=== PATIENT | male | born 1960 | race African-American/Black ===

== ENCOUNTER 2016-10-29 14:09 | Emergency (ER) | payer BC, OTHER ==
[2016-10-29 14:17] VITALS: BP 147/71; PULSE 86; RESP 18; TEMP 97.8
--- NOTE | 2016-10-29 14:33 | ED ---
Chest Pain HPI - General Chief Complaint: Chest Pain Stated Complaint: Rib Injury Time Seen by Provider: 10/29/16 14:21 Source: patient, RN notes reviewed Mode of arrival: ambulatory Limitations: no limitations - History of Present Illness Initial Comments: This a pleasant 56-year-old male who presents emergency department complaining of right anterior lateral rib pain. Patient states that he fell at home last and has had pain in the area ever since. He also states he's got pain to a lesser sent in the left anterior ribs. Patient denies any neck or back pain. Patient denies abdominal pain. Patient denies any head or neck injury. Patient denies shortness breath but does state that he is getting pain with deep breathing. Patient states that any touching or movement the chest wall exacerbates the pain. Remaining still does alleviate the pain patient is also complaining of a nodule to the plantar aspect of his left foot which is inflamed by walking. Patient states that he is having pain to the area. Patient denies any injury. Patient states that there is a palpable nodule to the area. Patient denies any redness. No streaking. No fever or chills. Additionally the patient's complaining of right eye discharge. Patient denies any vision problems. Patient denies any pain. He states the eye feels irritated. Patient states that he did have evidence of crusting from the eye this morning. Patient denies any other upper respiratory symptoms. No runny nose. No sore throat. No difficulty swallowing. No ear pain. Patient denies any neck pain. No shortness of breath. No palpitations. No change in bowel movements or urination. No nausea or vomiting. No paresthesias. No skin rashes or lesions. Pain Radiation: LUE - Related Data Previous Rx's Medication Instructions Recorded Ranitidine HCl [Zantac] 150 mg PO BID PRN #30 tab 11/09/15 Acetaminophen-Codeine 300-30mg 1 each PO Q4H PRN #20 tablet 10/29/16 [Tylenol w/codeine #3] Naproxen [Naprosyn] 500 mg PO Q12HR #24 tab 10/29/16 Tobra-Dexamet 0.3-0.1% Eye Bernadette 1 drops RIGHT EYE Q4H #10 ml 10/29/16 [Tobradex Ophth Susp] Allergies Allergy/AdvReac Type Severity Reaction Status Date / Time latex AdvReac Rash/Hives Verified 11/09/15 14:06 Review of Systems ROS Statement: Those systems with pertinent positive or pertinent negative responses have been documented in the HPI. ROS Other: All systems not noted in ROS Statement are negative. Past Medical History Past Medical History: No Reported History History of Any Multi-Drug Resistant Organisms: None Reported Additional Past Surgical History / Comment(s): left knee, thumb Past Psychological History: No Psychological Hx Reported Smoking Status: Never smoker Past Alcohol Use History: Occasional Past Drug Use History: None Reported General Exam - General Exam Comments Initial Comments: Well-developed, well-nourished 56-year-old male in no distress Limitations: no limitations General appearance: alert, in no apparent distress Head exam: Present: atraumatic, normocephalic, normal inspection Eye exam: Present: PERRL, EOMI, conjunctival injection (Right, no purulent discharge). Absent: scleral icterus, nystagmus, periorbital swelling, periorbital tenderness Pupils: Present: normal accommodation ENT exam: Present: normal exam, normal oropharynx, mucous membranes moist, TM's normal bilaterally, normal external ear exam Neck exam: Present: normal inspection. Absent: tenderness, meningismus, lymphadenopathy Respiratory exam: Present: chest wall tenderness (Right anterior lateral rib tenderness. No crepitus or deformity.) Cardiovascular Exam: Present: regular rate, normal rhythm, normal heart sounds. Absent: systolic murmur, diastolic murmur, rubs, gallop, clicks GI/Abdominal exam: Present: soft, normal bowel sounds. Absent: distended, tenderness, guarding, rebound, rigid Extremities exam: Present: normal capillary refill, other (Patient has a palpable nodule to the plantar aspect of the left forefoot. There is no evidence of surrounding erythema. No evidence of infection. No evidence of abscess. This is a mobile, less than 1 cm diameter, subcutaneous nodule) Back exam: Present: normal inspection Neurological exam: Present: alert, oriented X3, CN II-XII intact Psychiatric exam: Present: normal affect, normal mood Skin exam: Present: warm, dry, intact, normal color. Absent: rash Course Vital Signs 10/29/16 14:12 Temperature 97.8 F Pulse Rate 86 Respiratory 18 Rate Blood Pressure 147/71 O2 Sat by Pulse 97 Oximetry Chest Pain MDM - MDM Plain film x-rays of the right ribs and AP chest reveal no acute pathology as read by me. There is no pneumothorax. No fracture. No effusion. No cardiomegaly. No infiltrate. Patient appears to have healing right rib contusions. There was no abdominal tenderness. Patient looks well. Patient is not hemodynamically unstable. Patient is afebrile. Patient also has what appears to be viral conjunctivitis to the right eye. Patient also has a noninflamed subcutaneous nodule to the plantar aspect of his left foot. This is noninfected. Patient will need to follow-up with his regular physician for reevaluation. Return parameters discussed Return to the ER at once if the symptoms worsen or problems or difficulties arise. Disposition Clinical Impression: Contusion of rib on right side, Single skin nodule, Conjunctivitis of right eye Disposition: HOME SELF-CARE Condition: Good Instructions: Conjunctivitis (ED), Rib Contusion (ED) Additional Instructions: Follow-up with your primary care physician regarding the nodule on the plantar aspect of the left foot. Return to the ER at once if the symptoms worsen or problems or difficulties arise. Prescriptions: Acetaminophen-Codeine 300-30mg [Tylenol w/codeine #3] 1 each PO Q4H PRN #20 tablet PRN Reason: Pain Naproxen [Naprosyn] 500 mg PO Q12HR #24 tab Tobra-Dexamet 0.3-0.1% Eye Bernadette [Tobradex Ophth Susp] 1 drops RIGHT EYE Q4H #10 ml Referrals: Eleazar Blackman MD [Primary Care Provider] - 1-2 days Time of Disposition: 15:03
--- NOTE | 2016-10-29 15:08 | XR ---
EXAMINATION TYPE: XR ribs RT w pa chest xray DATE OF EXAM: 10/29/2016 3:00 PM COMPARISON: NONE HISTORY: Pain TECHNIQUE: Single view of the chest 4 views of the ribs are submitted. FINDINGS: The lungs are clear. No Evidence for pneumothorax. No evidence for focal contusion. Medi astinal structures are midline. Evaluation of the ribs fails to demonstrate evidence for displaced r ib fracture or secondary sign of rib fracture. IMPRESSION: Negative study
== END 2016-10-29 15:16 | disposition home or self-care (01) ==
LOC: EC 14:09
DX: S20.211A Contusion of right front wall of thorax, initial encounter (principal); H10.9 Unspecified conjunctivitis; R22.9 Localized swelling, mass and lump, unspecified; Z91.040 Latex allergy status; W19.XXXA Unspecified fall, initial encounter
CPT/HCPCS: 99284

== ENCOUNTER 2017-02-04 06:39 | Emergency (ER) | payer OTHER ==
[2017-02-04 06:48] VITALS: RESP 18
[2017-02-04] MEDS ORDERED: KETOROLAC 60 MG/2 ML VIAL IM STA (08:09)
[2017-02-04] MEDS ORDERED: Acetaminophen-Codeine 300-30mg TAB PO STA (08:09)
--- NOTE | 2017-02-04 08:11 | ED ---
General Adult HPI - General Chief complaint: Back Pain/Injury Stated complaint: Back Pain Time Seen by Provider: 02/04/17 07:12 Source: patient, RN notes reviewed, old records reviewed Mode of arrival: ambulatory Limitations: no limitations - History of Present Illness Initial comments: This is a 56-year-old [place], history of chronic back pain. Acute on chronic back pain. Patient has history of that. Imaging, prior MRIs, no neurological deficit. No problems with bowel or bladder no fevers no recent IV drug abuse. No modifying factors for pain - Related Data Home Medications Medication Instructions Recorded Confirmed [phone] 1 tab PO Q4HR PRN 02/04/17 02/04/17 [Excedrin] Ibuprofen [Motrin] 200 mg PO Q6HR PRN 02/04/17 02/04/17 Multivitamins, Thera [Multivitamin 1 tab PO DAILY 02/04/17 02/04/17 (formulary)] Previous Rx's Medication Instructions Recorded Acetaminophen with Codeine 1 tab PO Q4H PRN #20 tab 02/04/17 [Tylenol w/codeine #3] Naproxen [Naprosyn] 500 mg PO Q12HR #30 tab 02/04/17 Allergies Allergy/AdvReac Type Severity Reaction Status Date / Time latex Allergy Rash/Hives Verified 02/04/17 07:43 Review of Systems ROS Statement: Those systems with pertinent positive or pertinent negative responses have been documented in the HPI. ROS Other: All systems not noted in ROS Statement are negative. Past Medical History Past Medical History: No Reported History History of Any Multi-Drug Resistant Organisms: None Reported Additional Past Surgical History / Comment(s): left knee, thumb Past Psychological History: No Psychological Hx Reported Smoking Status: Never smoker Past Alcohol Use History: Occasional Past Drug Use History: None Reported General Exam Limitations: no limitations General appearance: alert, in no apparent distress Head exam: Present: atraumatic, normocephalic, normal inspection Eye exam: Present: normal appearance, PERRL, EOMI. Absent: scleral icterus, conjunctival injection, periorbital swelling ENT exam: Present: normal exam, mucous membranes moist Neck exam: Present: normal inspection. Absent: tenderness, meningismus, lymphadenopathy Respiratory exam: Present: normal lung sounds bilaterally. Absent: respiratory distress, wheezes, rales, rhonchi, stridor Cardiovascular Exam: Present: regular rate, normal rhythm, normal heart sounds. Absent: systolic murmur, diastolic murmur, rubs, gallop, clicks GI/Abdominal exam: Present: soft, normal bowel sounds. Absent: distended, tenderness, guarding, rebound, rigid Extremities exam: Present: normal inspection, full ROM, normal capillary refill. Absent: tenderness, pedal edema, joint swelling, calf tenderness Back exam: Present: normal inspection Neurological exam: Present: alert, oriented X3, CN II-XII intact Psychiatric exam: Present: normal affect, normal mood Skin exam: Present: warm, dry, intact, normal color. Absent: rash Course Vital Signs 02/04/17 02/04/17 06:44 08:21 Temperature 97.7 F 97.1 F L Pulse Rate 69 67 Respiratory 18 Rate Blood Pressure 132/82 145/80 O2 Sat by Pulse 100 96 Oximetry Medical Decision Making - Medical Decision Making 56 male to the ER for evaluation of acute on chronic back pain, pain resolved, patient will be discharged home Disposition Clinical Impression: Mechanical back pain, Strain of lumbar region, Chronic back pain Disposition: HOME SELF-CARE Condition: Good Instructions: Acute Low Back Pain (ED), Chronic Back Pain (ED) Prescriptions: Acetaminophen with Codeine [Tylenol w/codeine #3] 1 tab PO Q4H PRN #20 tab PRN Reason: Pain Naproxen [Naprosyn] 500 mg PO Q12HR #30 tab Referrals: Eleazar Blackman MD [Primary Care Provider] - 1-2 days
[2017-02-04 08:22] VITALS: BP 145/80; PULSE 67; TEMP 97.1
== END 2017-02-04 08:24 | disposition home or self-care (01) ==
LOC: EC 06:39
DX: S39.012A Strain of muscle, fascia and tendon of lower back, initial encounter (principal); X50.0XXA Overexertion from strenuous movement or load, initial encounter; X50.1XXA Overexertion from prolonged static or awkward postures, initial encounter; Y99.0 Civilian activity done for income or pay; Y92.69 Other specified industrial and construction area as the place of occurrence of the external cause
CPT/HCPCS: 99283; 96372; J1885

== ENCOUNTER 2017-07-16 15:06 | Emergency (ER) | payer OTHER ==
[2017-07-16 15:23] VITALS: BP 119/67; PULSE 71; RESP 16; TEMP 98.2
[2017-07-16] MEDS ORDERED: HYDROcodone/APAP 5-325MG 1 EACH TAB PO STA (16:47)
--- NOTE | 2017-07-16 17:58 | XR ---
EXAMINATION TYPE: XR ankle complete LT, XR foot complete LT DATE OF EXAM: 07/16/2017 CLINICAL HISTORY: Pain after a fall 2 days ago TECHNIQUE: Frontal, lateral and oblique images of the left ankle and foot are obtained. COMPARISON: None. FINDINGS: There is no acute fracture/dislocation evident in the left ankle. The ankle mortise appea rs within normal limits. The overlying soft tissue appears unremarkable.Small Achilles and plantar e nthesophytes are present. There is an obliquely oriented noncomminuted fracture of the distal aspect of the first proximal phal anx without intra-articular extension. Overlying soft tissue swelling is noted. No radiopaque foreign body. IMPRESSION: 1. Noncomminuted, nonintra-articular fracture of the distal aspect of the first proximal phalanx. 2. There is no acute fracture or dislocation in the left ankle.
--- NOTE | 2017-07-16 18:19 | ED ---
Lower Extremity Injury HPI - General Chief Complaint: Extremity Injury, Lower Stated Complaint: Foot injury Time Seen by Provider: 07/16/17 15:48 Source: patient Mode of arrival: wheelchair Limitations: no limitations - History of Present Illness Initial Comments: 57-year-old male patient presents to the emergency department today for complaints of left great toe pain and swelling after a slip and fall accident 2 days ago. She states he has had increased pain with ambulation. States that he also has pain whenever he attempts to move the toes. He reports some minimal ankle pain as well. Denies any difficulty with range of motion of the ankle. Denies any numbness or tingling to the foot. States that he did take some ibuprofen for the pain earlier but it is not really helping. He denies hitting his head or losing consciousness with the fall. Denies any other injuries. Patient denies any headache, neck pain, back pain, chest pain, shortness of breath, dizziness, weakness, abdominal pain, nausea, vomiting, or difficulties with bowel movements or urination. - Related Data Previous Rx's Medication Instructions Recorded Hydrocodone/Acetaminophen [[place] 1 tab PO Q6HR PRN #15 tab 07/16/17 5-325] Allergies Allergy/AdvReac Type Severity Reaction Status Date / Time latex Allergy Rash/Hives Verified 07/16/17 15:23 Review of Systems ROS Statement: Those systems with pertinent positive or pertinent negative responses have been documented in the HPI. ROS Other: All systems not noted in ROS Statement are negative. Past Medical History Past Medical History: No Reported History History of Any Multi-Drug Resistant Organisms: None Reported Past Surgical History: Orthopedic Surgery Additional Past Surgical History / Comment(s): left knee, thumb Past Psychological History: No Psychological Hx Reported Smoking Status: Never smoker Past Alcohol Use History: None Reported Past Drug Use History: None Reported General Exam Limitations: no limitations General appearance: alert, in no apparent distress, other (This is a well- developed, well-nourished adult male patient in no acute distress. Vital signs upon presentation are temperature 98.2F, pulse 71, respirations 16, blood pressure 119/67, pulse ox 98% on room air.) Eye exam: Present: normal appearance, PERRL, EOMI. Absent: scleral icterus, conjunctival injection, periorbital swelling ENT exam: Present: normal exam, normal oropharynx, mucous membranes moist Neck exam: Present: normal inspection, full ROM, other (Nontender, no step-off, no deformity to firm midline palpation of the posterior cervical spine. Full range of motion without pain or limitation.). Absent: tenderness, meningismus, lymphadenopathy Respiratory exam: Present: normal lung sounds bilaterally. Absent: respiratory distress, wheezes, rales, rhonchi, stridor Cardiovascular Exam: Present: regular rate, normal rhythm, normal heart sounds. Absent: systolic murmur, diastolic murmur, rubs, gallop, clicks GI/Abdominal exam: Present: soft, normal bowel sounds. Absent: distended, tenderness, guarding, rebound, rigid Extremities exam: Present: full ROM, tenderness (Tenderness over the left great toe, especially at the MTP joint.), normal capillary refill, other (Swelling and ecchymosis noted over the left great toe and the forefoot. Distal pulses intact. Neurovascular status intact. Skin to the left lower extremities pink, warm, and dry. Cap refill is less than 3 seconds.). Absent: normal inspection , pedal edema, joint swelling, calf tenderness Back exam: Present: normal inspection, other (Nontender, no step-off, no deformity to firm midline palpation of the thoracic and lumbar vertebrae. Full range of motion without pain or limitation.). Absent: vertebral tenderness Neurological exam: Present: alert, oriented X3, CN II-XII intact Psychiatric exam: Present: normal affect, normal mood Skin exam: Present: warm, dry, intact, normal color. Absent: rash Course Vital Signs 07/16/17 15:22 Temperature 98.2 F Pulse Rate 71 Respiratory 16 Rate Blood Pressure 119/67 O2 Sat by Pulse 98 Oximetry Medical Decision Making - Medical Decision Making 57-year-old male patient presented to the emergency department today for evaluation of left great toe pain and foot swelling. Physical examination did reveal swelling and ecchymosis over the dorsal aspect of the left great toe and dorsal foot. Distal pulses are intact. Neurovascular status was intact. X- rays did reveal a fracture of the proximal phalanx of the first digit on the left foot. Patient will be discharged home with an orthopedic postop shoe and a prescription for crutches. He'll be given medication for pain management. He is instructed to rest, ice, and elevate the extremity. He is instructed to follow-up with orthopedics as soon as possible. He is instructed to return here immediately for any new, worsening, or concerning symptoms. He verbalizes understanding and agrees with this plan. - Radiology Data Radiology results: report reviewed, image reviewed 3 views of the left ankle and foot are obtained. There is no acute fracture dislocation evident in the ankle. The ankle mortise appears within normal limits. The overlying soft tissue appears unremarkable. Small Achilles and plantar and enthesophytes are present. There is an obliquely oriented non- comminuted fracture of the distal aspect of the first proximal phalanx without intra-articular extension. Overlying soft tissue swelling is noted. No radiopaque foreign body. Impression by shows non-comminuted, non-intra- articular fracture of the distal aspect of the first proximal phalanx. There is no acute fracture dislocation left ankle. Disposition Clinical Impression: Fracture of left great toe Disposition: HOME SELF-CARE Condition: Good Instructions: Foot Fracture in Adults (ED) Additional Instructions: Rest, ice, elevate the left foot. Wear postop shoe with ambulation. Use crutches and remain nonweightbearing until follow up with orthopedics. Take medications as instructed. Follow-up with orthopedics as soon as possible. Return here immediately for any new, worsening, or concerning symptoms. Prescriptions: Hydrocodone/Acetaminophen [[place] 5-325] 1 tab PO Q6HR PRN #15 tab PRN Reason: Pain Referrals: Eleazar Blackman MD [Primary Care Provider] - 1-2 days Kale Majano MD [STAFF PHYSICIAN] - 1-2 days Time of Disposition: 18:19
== END 2017-07-16 18:27 | disposition home or self-care (01) ==
LOC: EC 15:06
DX: S92.412A Displaced fracture of proximal phalanx of left great toe, initial encounter for closed fracture (principal); M77.52 Other enthesopathy of left foot and ankle; M25.579 Pain in unspecified ankle and joints of unspecified foot; Z91.040 Latex allergy status; W01.0XXA Fall on same level from slipping, tripping and stumbling without subsequent striking against object, initial encounter
CPT/HCPCS: 99283

== ENCOUNTER → 2017-12-08 | Outpatient (CLI) | payer OTHER ==
--- NOTE | 2017-12-08 16:44 | US ---
EXAMINATION TYPE: US scrotum with doppler. Grayscale and color Doppler Duplex imaging performed of t zi scrotum. DATE OF EXAM: 12/08/2017 COMPARISON: NONE CLINICAL HISTORY: Left testicular pain, N50.812. EXAM MEASUREMENTS: TESTICLES: Right Testicle: 4.1 x 2.2 x 3.0 cm Left Testicle: 4.0 x 2.1 x 2.9 cm EPIDIDYMIS HEAD: Right Epididymis: 1.1 cm Left Epididymis: 1.1 cm Doppler performed to assess for testicular vascularity; good bilateral color flow and waveforms are s een. There is no evidence of testicular torsion. Presence of hydroceles: No Presence of varicoceles: Yes, bilaterally IMPRESSION: No evidence of testicular torsion or mass. No free fluid. Mild bilateral varicoceles.
--- NOTE | 2017-12-09 08:02 | XR ---
EXAMINATION TYPE: XR lumbar spine 2 or 3V DATE OF EXAM: 12/08/2017 CLINICAL HISTORY: Low back pain after lifting injury TECHNIQUE: Frontal and lateral images of the lumbar spine are obtained. COMPARISON: None FINDINGS: There are 5 lumbar type vertebral bodies identified. The lumbar spine shows satisfactory alignment without evidence of acute fracture or dislocation. Vertebral body heights and disk space he ights are within normal limits. Mild degenerative changes of the lumbar spine are splayed as facet ar thropathy from L4 through S1 and small anterior osteophytes throughout the lumbar spine.. The overly ing soft tissue appears unremarkable. Minimal atherosclerosis is seen of the abdominal aorta. IMPRESSION: 1. No acute fracture or dislocation is seen in the lumbar spine. 2. Minimal degenerative changes of the lumbar spine.
== END | disposition home or self-care (01) ==
LOC: RADUSMAIN 15:51
PROVIDERS: ATTEND Emergency Medicine
DX: M47.816 Spondylosis without myelopathy or radiculopathy, lumbar region (principal); S39.012A Strain of muscle, fascia and tendon of lower back, initial encounter; I86.1 Scrotal varices; R20.9 Unspecified disturbances of skin sensation
CPT/HCPCS: 72100; 76870; 93975

== ENCOUNTER 2017-12-13 13:24 | Emergency (ER) | payer OTHER ==
[2017-12-13] MEDS ORDERED: diphenhydrAMINE 50 MG/ML 1 ML VIAL IVP STA (13:54)
[2017-12-13] MEDS ORDERED: METOCLOPRAMIDE 5 MG/ML 2 ML VIAL IVP STA (13:54)
[2017-12-13] MEDS ORDERED: SODIUM CHLORIDE 0.9% 1,000 ML IV ONE (13:54)
--- NOTE | 2017-12-13 14:00 | ED ---
General Adult HPI - General Chief complaint: Upper Respiratory Infection Stated complaint: congestion Time Seen by Provider: 12/13/17 13:36 Source: patient Mode of arrival: ambulatory Limitations: no limitations - History of Present Illness Initial comments: Jameson Moise with a previously healthy 57 yo male who presents to the ED today for evaluation of headache, nausea and decreased appetite. Patient reports that for approximately the past 4 days he's been experiencing a headache which she describes as pressure-like throughout his whole head. Headache is worse with lying flat, bending over to tie his shoes or coughing. The headache feels best when he is sitting up straight. He reports that when he lays flat he feels like his neck cuts off blood flow to his head and when he stands up he has a ennis of blood which makes his headache worse. Patient has taken PO NSAIDS and flexeril without improvement in his headache. Patient reports that he has experienced mild headaches in the past, however this one has persisted for 4 days without relief. Patient reports he took 2 aspirin earlier in the day which somewhat improved his headache. Patient denies any fevers, chills, vomiting. He reports that the headache was not sudden in onset. It is not associated with any focal neurologic deficits. Patient reports that he has had no appetite for approximately 4 days, he states he has not eaten any solid foods but is been making an appointment to drink plenty of fluids. He denies any abdominal pain, vomiting, diarrhea or constipation. He denies any change in bowel or bladder habits. He denies any episodes of incontinence. Patient reports that he has a family history of fibromyalgia and he suffers from chronic all over body pain, however he denies any worsening pain. He denies any weakness in his arms or legs. He denies any difficulty in ambulating. He denies any trouble with speech or vision changes. - Related Data Previous Rx's Medication Instructions Recorded Hydrocodone/Acetaminophen [[place] 1 tab PO Q6HR PRN #15 tab 07/16/17 5-325] Methocarbamol [Robaxin] 1,000 mg PO TID #20 tab 12/13/17 Allergies Allergy/AdvReac Type Severity Reaction Status Date / Time latex Allergy Rash/Hives Verified 12/13/17 13:31 Review of Systems ROS Statement: Those systems with pertinent positive or pertinent negative responses have been documented in the HPI. ROS Other: All systems not noted in ROS Statement are negative. Constitutional: Denies: fever, chills, weakness Eyes: Denies: vision change ENT: Reports: ear pain. Denies: dental pain, hearing loss Respiratory: Denies: cough, wheezes Cardiovascular: Reports: dyspnea on exertion (chronic for months, attributed to being overweight). Denies: chest pain Endocrine: Reports: fatigue Gastrointestinal: Reports: nausea. Denies: vomiting, diarrhea, constipation Genitourinary: Denies: urgency, dysuria, frequency Musculoskeletal: Reports: myalgia. Denies: back pain Skin: Denies: rash, lesions Neurological: Reports: headache. Denies: weakness, numbness, paresthesias, confusion, abnormal gait, vertigo Psychiatric: Denies: anxiety, depression Hematological/Lymphatic: Denies: easy bleeding, easy bruising Past Medical History Past Medical History: No Reported History History of Any Multi-Drug Resistant Organisms: None Reported Past Surgical History: Orthopedic Surgery Additional Past Surgical History / Comment(s): left knee, thumb Past Psychological History: No Psychological Hx Reported Smoking Status: Never smoker Past Alcohol Use History: None Reported Past Drug Use History: None Reported General Exam Limitations: no limitations General appearance: alert, in no apparent distress Head exam: Present: atraumatic, normocephalic Eye exam: Present: normal appearance, PERRL, EOMI. Absent: scleral icterus, conjunctival injection, nystagmus, periorbital swelling, periorbital tenderness ENT exam: Present: normal exam Neck exam: Present: normal inspection. Absent: meningismus, lymphadenopathy Respiratory exam: Present: normal lung sounds bilaterally. Absent: respiratory distress Cardiovascular Exam: Present: regular rate, normal rhythm GI/Abdominal exam: Present: soft. Absent: distended, tenderness, guarding, rebound Rectal exam: Present: deferred Extremities exam: Present: normal inspection, full ROM, normal capillary refill. Absent: tenderness, pedal edema, joint swelling, calf tenderness Neurological exam: Present: alert, oriented X3. Absent: CN II-XII intact Psychiatric exam: Present: normal affect, normal mood Skin exam: Present: warm, dry Course Vital Signs 12/13/17 12/13/17 13:29 16:36 Temperature 98.5 F 98 F Pulse Rate 88 93 Respiratory 18 16 Rate Blood Pressure 137/83 137/71 O2 Sat by Pulse 97 98 Oximetry - Reevaluation(s) Reevaluation #1: Patient reevaluted, reports some improvement in his headache after meds. Feeling drowsy after meds. Relieved that CT had no acute findings, would like to be discharged to follow up with his PCP 12/13/17 16:22 Medical Decision Making - Medical Decision Making Patient was seen and evaluated, history was obtained from the patient Patient presented with a headache for multiple days duration, worse with coughing or bending forward. Headache was not sudden in onset, not thunderclap, not the worse headache of his life. Patient states it feels like increased pressure in his head, however does not feel like he has increased sinus pressure or ALLERGY type symptoms. Patient also states that he feels nauseated and has had a significantly decreased appetite. Patient states that he thinks his decreased appetite could be due to taking Flexeril. Labs, imaging, medications ordered Labs were reviewed, no significant abnormalities Imaging with no acute findings, patient has chronic changes in his cervical spine Patient was reevaluated, reports feeling drowsy from the medications only minimal and improvement in his headache Discussed with the patient further evaluation for his headache including a lumbar puncture, advised the patient the risks and benefits of a lumbar puncture. Advised the patient would allow us to evaluate for possible meningitis, blood in the spinal fluid pressures. At this time the patient states that he feels very relieved that his head CT is normal and that he believes all of his symptoms are secondary to his neck pain. He states at this time he doesn't wish for any further evaluation and would like to be discharged home. As the patient that should he have any worsening symptoms, fevers, worsening headache, vision changes development of any neurologic symptoms or any new or concerning symptoms he should return to the emergency department immedially for repeat evaluation. All questions pertaining care were answered best my ability patient was discharged home in stable condition. - Lab Data Result diagrams: 12/13/17 14:09 12/13/17 14:09 Lab Results 12/13/17 12/13/17 12/13/17 Range/Units 14:09 14:09 14:09 WBC 4.4 (3.8-10.6) k/uL RBC 5.21 (4.30-5.90) m/uL Hgb 15.3 (13.0-17.5) gm/dL Hct 46.5 (39.0-53.0) % MCV 89.3 (80.0-100.0) fL MCH 29.4 (25.0-35.0) pg MCHC 33.0 (31.0-37.0) g/dL RDW 13.4 (11.5-15.5) % Plt Count 197 (150-450) k/uL Neutrophils % 68 % Lymphocytes % 17 % Monocytes % 11 % Eosinophils % 1 % Basophils % 1 % Neutrophils # 3.0 (1.3-7.7) k/uL Lymphocytes # 0.7 L (1.0-4.8) k/uL Monocytes # 0.5 (0-1.0) k/uL Eosinophils # 0.0 (0-0.7) k/uL Basophils # 0.0 (0-0.2) k/uL PT 10.0 (9.0-12.0) sec INR 1.0 (<1.2) APTT 26.3 (22.0-30.0) sec Sodium 139 (137-145) mmol/L Potassium 4.6 (3.5-5.1) mmol/L Chloride 100 (98-107) mmol/L Carbon Dioxide 25 (22-30) mmol/L Anion Gap 14 mmol/L BUN 18 (9-20) mg/dL Creatinine 1.20 (0.66-1.25) mg/dL Est GFR (CKD-EPI)AfAm 78 (>60 ml/min/1.73 sqM) Est GFR (CKD-EPI)NonAf 68 (>60 ml/min/1.73 sqM) Glucose 100 H (74-99) mg/dL Calcium 8.8 (8.4-10.2) mg/dL Magnesium 2.1 (1.6-2.3) mg/dL Disposition Clinical Impression: Headache Disposition: HOME SELF-CARE Condition: Good Instructions: Acute Headache (ED) Prescriptions: Methocarbamol [Robaxin] 1,000 mg PO TID #20 tab Is patient prescribed a controlled substance at d/c from ED?: No Referrals: None,Stated [Primary Care Provider] - 1-2 days Time of Disposition: 16:21
[2017-12-13 14:23] LABS: Basophils % (A) 1 %; Eosinophils % (A) 1 %; HCT 46.5 % (39.0-53.0); HGB 15.3 gm/dL (13.0-17.5); Lymphocytes # (A) 0.7 k/uL (1.0-4.8); Lymphocytes % (A) 17 %; MCH 29.4 pg (25.0-35.0); MCV 89.3 fL (80.0-100.0); Monocytes # (A) 0.5 k/uL (0-1.0); Monocytes % (A) 11 %; Neutrophils % (A) 68 %; Platelet Count 197 k/uL (150-450); RBC 5.21 m/uL (4.30-5.90); RDW 13.4 % (11.5-15.5); WBC 4.4 k/uL (3.8-10.6)
[2017-12-13 14:32] LABS: Calcium 8.8 mg/dL (8.4-10.2); Magnesium 2.1 mg/dL (1.6-2.3); Potassium 4.6 mmol/L (3.5-5.1)
[2017-12-13 14:33] LABS: Partial Thromboplastin Time 26.3 sec (22.0-30.0)
--- NOTE | 2017-12-13 14:58 | CT ---
EXAMINATION TYPE: CT brain garett wo con DATE OF EXAM: 12/13/2017 COMPARISON: 04/08/2015 HISTORY: Congestion, headache, nausea. Neck pain. CT DLP: 1589.1 mGycm. Automated Exposure Control for Dose Reduction was Utilized. TECHNIQUE: CT scan of the head and cervical spine are performed without contrast. FINDINGS: There is no acute intracranial hemorrhage, mass effect, or midline shift identified. The ventricles and sulci are within normal limits in size. The globes are intact. There is mild mucosal thickening within the left maxillary sinus and moderate mucosal thickening within the ethmoid and sp henoid sinuses with near complete opacification of the frontal sinuses. Mucoperiosteal thickening is also noted. Mastoid air cells are well aerated. Slight blurring of the left basal ganglia is unchange d in comparison to the exam of 04/08/2015. Cervical spine is visualized in its entirety from C1 through upper thoracic levels and demonstrates s atisfactory alignment without evidence of acute fracture or dislocation. Mild multilevel degenerative changes of the cervical spine are seen without significant spinal canal stenosis on CT. There is str aightening of the usual cervical lordosis that may relate to muscular sprain, spasm or patient positi oning. Prevertebral soft tissue appears within normal limits. The C1-C2 articulation is unremarkable . IMPRESSION: 1. There is no acute fracture or dislocation evident in the cervical spine. 2. No acute intracranial hemorrhage, mass effect, or midline shift is seen. 3. Pansinusitis with findings suggesting acute on chronic sinusitis. 4. Mild multilevel degenerative changes of the cervical spine without significant spinal canal stenos is on CT. 5. Straightening of usual cervical lordosis may relate to patient positioning, muscular sprain, or mu scular spasm.
[2017-12-13 16:36] VITALS: BP 137/71; PULSE 93; RESP 16; TEMP 98
== END 2017-12-13 16:36 | disposition home or self-care (01) ==
LOC: EC 13:24
DX: R51 Headache (principal); R11.0 Nausea; R63.0 Anorexia; R09.89 Other specified symptoms and signs involving the circulatory and respiratory systems; G89.29 Other chronic pain; Z91.040 Latex allergy status
CPT/HCPCS: 36415; 80048; 83735; 85025; 85610; 85730; 72125; 70450; 99284; 96374; 96375; 96361; J1200; J2765

== ENCOUNTER → 2018-12-05 | Outpatient (CLI) | payer OTHER ==
[2018-12-05 13:14] LABS: Basophils # (A) 0.1 k/uL (0-0.2); Basophils % (A) 1 %; Eosinophils # (A) 0.2 k/uL (0-0.7); Eosinophils % (A) 3 %; HCT 48.8 % (39.0-53.0); HGB 15.1 gm/dL (13.0-17.5); Lymphocytes # (A) 1.7 k/uL (1.0-4.8); Lymphocytes % (A) 31 %; MCH 28.7 pg (25.0-35.0); MCHC 30.9 g/dL (31.0-37.0); MCV 92.8 fL (80.0-100.0); Mean Platelet Volume 7.6; Monocytes # (A) 0.4 k/uL (0-1.0); Monocytes % (A) 7 %; Neutrophils # (A) 2.9 k/uL (1.3-7.7); Neutrophils % (A) 54 %; Platelet Count 262 k/uL (150-450); RBC 5.26 m/uL (4.30-5.90); RDW 13.6 % (11.5-15.5); WBC 5.3 k/uL (3.8-10.6)
[2018-12-05 18:57] LABS: Albumin 4.1 g/dL (3.80-4.90); Albumin/Globulin Ratio 1.95 (1.60-3.17); Anion Gap 4.7 mmol/L (4.00-12.00); Calcium 8.9 mg/dL (8.7-10.3); Carbon Dioxide 27.3 mmol/L (21.6-31.8); Globulin 2.1 g/dL (1.6-3.3); LDL Cholesterol,Calculated 143.4 mg/dL (0.0-131.0); Potassium 4.6 mmol/L (3.5-5.5); Total Bilirubin 0.6 mg/dL (0.3-1.2); Total Protein 6.2 g/dL (6.2-8.2); VLDL Calculation 42.6 mg/dL (5.00-40.00)
[2018-12-05 19:03] LABS: T4, Free (Free Thyroxine) 0.9 ng/dL (0.80-1.80)
== END ==
LOC: LABWHC1 12:31
PROVIDERS: ATTEND Family Medicine
DX: Z00.00 Encounter for general adult medical examination without abnormal findings (principal); E78.5 Hyperlipidemia, unspecified; Z12.12 Encounter for screening for malignant neoplasm of rectum; Z12.5 Encounter for screening for malignant neoplasm of prostate
CPT/HCPCS: 36415; 80053; 80061; 84153; 84439; 84443; 85025; 86803

== ENCOUNTER → 2019-08-25 | Outpatient (CLI) | payer OTHER ==
--- NOTE | 2019-08-25 09:54 | CT ---
EXAMINATION TYPE: CT brain wo con DATE OF EXAM: 08/25/2019 COMPARISON: 12/05/2017 HISTORY: Dizziness, Visual changes and syncope CT DLP: 1082 mGycm FINDINGS: There is no acute intracranial hemorrhage, mass effect, or midline shift identified. The ventricles a nd sulci are within normal limits in size. The globes are intact. There is mild mucosal thickening wi thin the left maxillary sinus and moderate mucosal thickening within the ethmoid and sphenoid sinuses with near complete opacification of the frontal sinuses. Mucoperiosteal thickening is also noted. Ma stoid air cells are well aerated. IMPRESSION: 1. No evidence of acute hemorrhage or mass effect. If symptoms persist or there is clinical concern for acute ischemia correlate with MRI. 2. Changes of chronic sinusitis.
--- NOTE | 2019-08-25 10:32 | ECHOF ---
Referral Reason:R42 Dizziness, H53.10 Visual Changes, R55 Syncope MEASUREMENTS -------- HEIGHT: 177.8 cm WEIGHT: 111.1 kg BP: 121/72 RVIDd: 3.3 cm (< 3.3) IVSd: 1.2 cm (0.6 - 1.1) LVIDd: 4.1 cm (3.9 - 5.3) LVPWd: 1.1 cm (0.6 - 1.1) IVSs: 1.7 cm LVIDs: 2.9 cm LVPWs: 1.8 cm LA Diam: 3.4 cm (2.7 - 3.8) LAESV Index (A-L): 22.55 ml/m Ao Diam: 3.4 cm (2.0 - 3.7) AV Cusp: 2.4 cm (1.5 - 2.6) MV EXCURSION: 17.310 mm (> 18.000) MV EF SLOPE: 77 mm/s (70 - 150) EPSS: 0.3 cm MV E Raman: 0.55 m/s MV DecT: 218 ms MV A Raman: 0.60 m/s MV E/A Ratio: 0.90 RAP: 5.00 mmHg RVSP: 26.04 mmHg TAPSE: 21.76 mm FINDINGS -------- Sinus rhythm. This was a technically good study. The left ventricular size is normal. There is borderline concentric left ventricular hypertrophy. Overall left ventricular systolic function is normal with, an EF between 55 - 60 %. The right ventricle is mildly enlarged. Normal LA size by volume 22+/-6 ml/m2. The right atrium is normal in size. Interatrial and interventricular septum intact. The aortic valve is trileaflet and appears structurally normal. There is trace mitral regurgitation. Mild tricuspid regurgitation present. Right ventricular systolic pressure is normal at < 35 mmHg. Trace/mild (physiologic) pulmonic regurgitation. The aortic root size is normal. Normal inferior vena cava with normal inspiratory collapse consistent with estimated right atrial pre ssure of 5 mmHg. There is no pericardial effusion. CONCLUSIONS -------- 1. Sinus rhythm. 2. This was a technically good study. 3. The left ventricular size is normal. 4. There is borderline concentric left ventricular hypertrophy. 5. The right ventricle is mildly enlarged. 6. Normal LA size by volume 22+/-6 ml/m2. 7. The right atrium is normal in size. 8. Interatrial and interventricular septum intact. 9. The aortic valve is trileaflet and appears structurally normal. 10. There is trace mitral regurgitation. 11. Mild tricuspid regurgitation present. 12. Right ventricular systolic pressure is normal at < 35 mmHg. 13. Trace/mild (physiologic) pulmonic regurgitation. 14. The aortic root size is normal. 15. Normal inferior vena cava with normal inspiratory collapse consistent with estimated right atrial pressure of 5 mmHg. 16. There is no pericardial effusion. MANAGER TRADE: Liliana Galvin RDCS
--- NOTE | 2019-08-25 11:09 | ECHOS ---
STRESS ECHOCARDIOGRAM DATE OF SERVICE: 08/25/2019 INDICATIONS: Chest pain. MEDICATIONS: BASELINE HEART RATE: 83 BASELINE BLOOD PRESSURE: 121/72 MAXIMUM HEART RATE: 143 MAXIMUM BLOOD PRESSURE: 205/67 85% MPHR: 139 100% MPHR: 163 METS: 9.1 MAXIMUM STAGE REACHED: III TOTAL EXERCISE TIME: 7-1/2 minutes CLINICAL INFORMATION: Baseline EKG revealed normal sinus rhythm without significant ST-T changes patient walked for 7-1/2 minutes on a standard [place] protocol. Achieved a maximal heart rate of 143 beats per minute which is more than 85% of predicted maximal. He developed fatigue and shortness of breath but did not have any angina. There was no arrhythmia. EKG did not reveal any ST-segment changes to indicate ischemia. By EKG criteria, this is a negative stress test with fair exercise capacity. Baseline echo images revealed normal wall motion and wall thickening of all segments. At peak exercise there was good augmentation of left ventricular wall motion and wall thickening of all segments suggesting that there is no evidence of stress-induced ischemia on this study. IMPRESSION: 1. Fair exercise capacity with a negative stress test by EKG criteria. 2. Normal stress echocardiogram. MMODL / IJN: [id number] /
--- NOTE | 2019-08-25 12:26 | US ---
EXAMINATION TYPE: US carotid duplex BILAT DATE OF EXAM: 08/25/2019 COMPARISON: NONE CLINICAL HISTORY: R42 Dizziness, H53.10 Visual Changes, R55 Syncope. EXAM MEASUREMENTS: RIGHT: Peak Systolic Velocity (PSV) cm/sec ----- Right CCA: 89.1 ----- Right ICA: 70.0 ----- Right ECA: 90.5 ICA/CCA ratio: 0.8 RIGHT: End Diastole cm/sec ----- Right CCA: 33.2 ----- Right ICA: 25.9 ----- Right ECA: 30.3 LEFT: Peak Systolic Velocity (PSV) cm/sec ----- Left CCA: 118.5 ----- Left ICA: 95.0 ----- Left ECA: 121.4 ICA/CCA ratio: 0.8 LEFT: End Diastole cm/sec ----- Left CCA: 46.4 ----- Left ICA: 33.2 ----- Left ECA: 42.0 VERTEBRALS (direction of flow): Right Vertebral: Antegrade Left Vertebral: Antegrade Rhythm: Normal No significant stenosis seen IMPRESSION: 1. Mild intimal thickening without significant flow-limiting stenosis. Criteria for Assigning % of Stenosis / Diameter reduction (Estimation based on the indirect measurements of the internal carotid artery velocities (ICA PSV). 1. Normal (no stenosis)=ICA PSV < 125 cm/s: ratio < 2.0: ICA EDV<40 cm/s. 2. Less than 50% stenosis=ICA PSV < 125 cm/s: ratio < 2.0: ICA EDV<40 cm/s. 3. 50 to 69% stenosis=ICA PSV of 125 to 230 cm/s: ration 2.0 ? 4.0: ICA EDV 40-100 cm/s. 4. Greater than 70% stenosis to near occlusion= ICA PSV > 230 cm/s: ratio > 4.0: ICA EDV > 100 cm/s. 5. Near occlusion= ICA PSV velocities may be low or undetectable: variable ratio and ICA EDV. 6. Total occlusion=unable to detect flow.
== END | disposition home or self-care (01) ==
LOC: RADNMMAIN 09:04
PROVIDERS: ATTEND Family Medicine
DX: I07.1 Rheumatic tricuspid insufficiency (principal); I37.1 Nonrheumatic pulmonary valve insufficiency; H53.10 Unspecified subjective visual disturbances; R93.0 Abnormal findings on diagnostic imaging of skull and head, not elsewhere classified; R42 Dizziness and giddiness; R55 Syncope and collapse
CPT/HCPCS: 70450; 93306; 93351; 93880

== ENCOUNTER 2020-04-18 13:36 | Observation (INO) | payer OTHER ==
[2020-04-18] MEDS ORDERED: NITROGLYCERIN OINT 1 INCH/GM PACKET TOPICAL STA (14:08)
[2020-04-18] MEDS ORDERED: ASPIRIN 81 MG PO STA (14:08)
--- NOTE | 2020-04-18 14:12 | ED ---
General Adult HPI - General Chief complaint: Chest Pain Stated complaint: Chest Pain Time Seen by Provider: 04/18/20 13:45 Source: patient, RN notes reviewed, old records reviewed Mode of arrival: wheelchair Limitations: no limitations - History of Present Illness Initial comments: This is a 60-year-old male with a past medical history significant for high cholesterol. Patient states over the last 2 weeks she's been having multiple episodes of near syncope. Patient states that happen at any time and he feels as though is given a passout and then he sits down and the symptoms resolved slowly. Patient states this morning he had a similar set of symptoms and then he started having some chest pain so he decided come to the emergency department. Patient states currently he does not have any chest pain. Patient states the pain did not radiate anywhere and he denies any shortness of breath per patient denies any episode of diaphoresis. Patient denies any smoking history. Patient denies any sensation of palpitations. Patient denies abdomin al pain patient denies nausea vomiting diarrhea. Patient has a fever chills or cough. Patient denies any swollen to the legs or calf tenderness. - Related Data Previous Rx's Medication Instructions Recorded Hydrocodone/Acetaminophen [[place] 1 tab PO Q6HR PRN #15 tab 07/16/17 5-325] methocarbamoL [Robaxin] 1,000 mg PO TID #20 tab 12/13/17 Allergies Allergy/AdvReac Type Severity Reaction Status Date / Time latex Allergy Rash/Hives Verified 04/18/20 13:47 Review of Systems ROS Statement: Those systems with pertinent positive or pertinent negative responses have been documented in the HPI. ROS Other: All systems not noted in ROS Statement are negative. Past Medical History Past Medical History: No Reported History History of Any Multi-Drug Resistant Organisms: None Reported Past Surgical History: Orthopedic Surgery Additional Past Surgical History / Comment(s): left knee, thumb Past Psychological History: No Psychological Hx Reported Past Alcohol Use History: None Reported Past Drug Use History: None Reported General Exam - General Exam Comments Initial Comments: GENERAL: Patient is well-developed and well-nourished. Patient is nontoxic and well- hydrated and is in mild distress. ENT: Neck is soft and supple. No significant lymphadenopathy is noted. Oropharynx is clear. Moist mucous membranes. Neck has full range of motion without eliciting any pain. EYES: The sclera were anicteric and conjunctiva were pink and moist. Extraocular movements were intact and pupils were equal round and reactive to light. Eyelids were unremarkable. PULMONARY: Unlabored respirations. Good breath sounds bilaterally. No audible rales rhonchi or wheezing was noted. CARDIOVASCULAR: There is a regular rate and rhythm without any murmurs gallops or rubs. ABDOMEN: Soft and nontender with normal bowel sounds. SKIN: Skin is clear with no lesions or rashes and otherwise unremarkable. NEUROLOGIC: Patient is alert and oriented x3. Cranial nerves II through XII are grossly intact. Motor and sensory are also intact. Normal speech, volume and content. Symmetrical smile. MUSCULOSKELETAL: Normal extremities with adequate strength and full range of motion. LYMPHATICS: No significant lymphadenopathy is noted PSYCHIATRIC: Normal psychiatric evaluation. Limitations: no limitations Course Vital Signs 04/18/20 13:44 Temperature 97.7 F Pulse Rate 84 Respiratory 18 Rate Blood Pressure 150/85 O2 Sat by Pulse 98 Oximetry Medical Decision Making - Medical Decision Making EKG shows normal sinus rhythm at 87 bpm MA interval is 144 [place] is 92 QT interval 360 QTC is 442. Patient's EKG shows no ST segment elevation or depre ssion. Chest x-ray shows no acute abnormality. I spoke with Dr. Blackman he agreed to admit the patient admitted the patient wrote admitting orders. - Lab Data Result diagrams: 04/18/20 14:03 04/18/20 14:03 Lab Results 04/18/20 04/18/20 04/18/20 Range/Units 14:03 14:03 14:03 WBC 6.1 (3.8-10.6) k/uL RBC 5.37 (4.30-5.90) m/uL Hgb 15.7 (13.0-17.5) gm/dL Hct 48.5 (39.0-53.0) % MCV 90.3 (80.0-100.0) fL MCH 29.2 (25.0-35.0) pg MCHC 32.3 (31.0-37.0) g/dL RDW 12.9 (11.5-15.5) % Plt Count 278 (150-450) k/uL Neutrophils % 65 % Lymphocytes % 24 % Monocytes % 7 % Eosinophils % 3 % Basophils % 1 % Neutrophils # 4.0 (1.3-7.7) k/uL Lymphocytes # 1.5 (1.0-4.8) k/uL Monocytes # 0.4 (0-1.0) k/uL Eosinophils # 0.2 (0-0.7) k/uL Basophils # 0.1 (0-0.2) k/uL PT 9.9 (9.0-12.0) sec INR 0.9 (<1.2) APTT 24.2 (22.0-30.0) sec Sodium 136 L (137-145) mmol/L Potassium 4.4 (3.5-5.1) mmol/L Chloride 103 (98-107) mmol/L Carbon Dioxide 24 (22-30) mmol/L Anion Gap 9 mmol/L BUN 11 (9-20) mg/dL Creatinine 1.05 (0.66-1.25) mg/dL Est GFR (CKD-EPI)AfAm >90 (>60 ml/min/1.73 sqM) Est GFR (CKD-EPI)NonAf 78 (>60 ml/min/1.73 sqM) Glucose 118 H (74-99) mg/dL Calcium 9.6 (8.4-10.2) mg/dL Magnesium 1.8 (1.6-2.3) mg/dL Total Bilirubin 0.9 (0.2-1.3) mg/dL AST 37 (17-59) U/L ALT 33 (4-49) U/L Alkaline Phosphatase 57 (38-126) U/L Troponin I (0.000-0.034) ng/mL Total Protein 7.7 (6.3-8.2) g/dL Albumin 4.7 (3.5-5.0) g/dL 04/18/20 Range/Units 14:03 WBC (3.8-10.6) k/uL RBC (4.30-5.90) m/uL Hgb (13.0-17.5) gm/dL Hct (39.0-53.0) % MCV (80.0-100.0) fL MCH (25.0-35.0) pg MCHC (31.0-37.0) g/dL RDW (11.5-15.5) % Plt Count (150-450) k/uL Neutrophils % % Lymphocytes % % Monocytes % % Eosinophils % % Basophils % % Neutrophils # (1.3-7.7) k/uL Lymphocytes # (1.0-4.8) k/uL Monocytes # (0-1.0) k/uL Eosinophils # (0-0.7) k/uL Basophils # (0-0.2) k/uL PT (9.0-12.0) sec INR (<1.2) APTT (22.0-30.0) sec Sodium (137-145) mmol/L Potassium (3.5-5.1) mmol/L Chloride (98-107) mmol/L Carbon Dioxide (22-30) mmol/L Anion Gap mmol/L BUN (9-20) mg/dL Creatinine (0.66-1.25) mg/dL Est GFR (CKD-EPI)AfAm (>60 ml/min/1.73 sqM) Est GFR (CKD-EPI)NonAf (>60 ml/min/1.73 sqM) Glucose (74-99) mg/dL Calcium (8.4-10.2) mg/dL Magnesium (1.6-2.3) mg/dL Total Bilirubin (0.2-1.3) mg/dL AST (17-59) U/L ALT (4-49) U/L Alkaline Phosphatase (38-126) U/L Troponin I <0.012 (0.000-0.034) ng/mL Total Protein (6.3-8.2) g/dL Albumin (3.5-5.0) g/dL Disposition Clinical Impression: Chest pain, Near syncope Disposition: ADMITTED IP TO THIS HOSP Referrals: Eleazar Blackman MD [Primary Care Provider] - 1-2 days Time of Disposition: 15:17
[2020-04-18 14:29] LABS: Basophils # (A) 0.1 k/uL (0-0.2); Basophils % (A) 1 %; Eosinophils # (A) 0.2 k/uL (0-0.7); Eosinophils % (A) 3 %; HCT 48.5 % (39.0-53.0); HGB 15.7 gm/dL (13.0-17.5); Lymphocytes # (A) 1.5 k/uL (1.0-4.8); Lymphocytes % (A) 24 %; MCH 29.2 pg (25.0-35.0); MCHC 32.3 g/dL (31.0-37.0); MCV 90.3 fL (80.0-100.0); Mean Platelet Volume 7.8; Monocytes # (A) 0.4 k/uL (0-1.0); Monocytes % (A) 7 %; Neutrophils % (A) 65 %; Platelet Count 278 k/uL (150-450); RBC 5.37 m/uL (4.30-5.90); RDW 12.9 % (11.5-15.5); WBC 6.1 k/uL (3.8-10.6)
--- NOTE | 2020-04-18 14:41 | XR ---
EXAMINATION TYPE: XR chest 2V DATE OF EXAM: 04/18/2020 COMPARISON: 10/29/2016 HISTORY: Shortness of breath TECHNIQUE: Frontal and lateral views of the chest are obtained. FINDINGS: Scattered senescent parenchymal changes noted. Hyperinflation compatible with COPD. No evidence for infiltrate. No evidence for atelectasis. Heart size is stable. Mediastinal structures are stable and grossly unremarkable. No evidence for hilar prominence. Degenerative changes dorsal spine. IMPRESSION: 1. No evidence for acute pulmonary disease.
[2020-04-18 14:44] LABS: ALT 33 U/L (4-49); AST 37 U/L (17-59); African American GFR (CKD) >90 (>60 ml/min/1.73 sqM); Albumin 4.7 g/dL (3.5-5.0); Alkaline Phosphatase 57 U/L (38-126); Anion Gap 9 mmol/L; Blood Urea Nitrogen 11 mg/dL (9-20); Calcium 9.6 mg/dL (8.4-10.2); Carbon Dioxide 24 mmol/L (22-30); Chloride 103 mmol/L (98-107); Glucose 118 mg/dL (74-99); Magnesium 1.8 mg/dL (1.6-2.3); Non-African American GFR(CKD) 78 (>60 ml/min/1.73 sqM); Potassium 4.4 mmol/L (3.5-5.1); Sodium 136 mmol/L (137-145); Total Bilirubin 0.9 mg/dL (0.2-1.3); Total Protein 7.7 g/dL (6.3-8.2)
[2020-04-18 14:47] LABS: INR 0.9 (<1.2); Partial Thromboplastin Time 24.2 sec (22.0-30.0); Prothrombin Time 9.9 sec (9.0-12.0)
[2020-04-18] MEDS ORDERED: NITROGLYCERIN SL TABS 0.4 MG TAB SUBLINGUAL PRN (15:18)
[2020-04-18] MEDS: NITROGLYCERIN OINT 1 INCH/GM PACKET TOPICAL SCH ×2 (16:01→23:56)
--- NOTE | 2020-04-18 17:40 | ECHOF ---
Referral Reason:chest pain MEASUREMENTS -------- HEIGHT: 175.3 cm WEIGHT: 108.9 kg BP: RVIDd: 3.2 cm (< 3.3) IVSd: 1.5 cm (0.6 - 1.1) LVIDd: 4.6 cm (3.9 - 5.3) LVPWd: 1.7 cm (0.6 - 1.1) IVSs: 2.0 cm LVIDs: 2.7 cm LVPWs: 2.1 cm LAESV Index (A-L): 25.71 ml/m Ao Diam: 2.7 cm (2.0 - 3.7) AV Cusp: 2.1 cm (1.5 - 2.6) MV EXCURSION: 23.601 mm (> 18.000) MV EF SLOPE: 142 mm/s (70 - 150) EPSS: 0.4 cm MV E Raman: 0.56 m/s MV DecT: 194 ms MV A Raman: 0.72 m/s MV E/A Ratio: 0.78 RAP: 5.00 mmHg RVSP: 19.26 mmHg FINDINGS -------- This was a technically adequate study. The left ventricular size is normal. There is moderate concentric left ventricular hypertrophy. O verall left ventricular systolic function is normal with, an EF between 55 - 60 %. The diastolic fi lling pattern is normal for the age of the patient 8.66. The right ventricle is normal in size. Normal LA size by volume 22+/-6 ml/m2. The right atrial size is normal. Interatrial and interventricular septum intact. The aortic valve is trileaflet and appears structurally normal. There is no evidence of aortic regu rgitation. There is no evidence of aortic stenosis. There is trace mitral regurgitation. Trace tricuspid regurgitation present. There is no evidence of pulmonary hypertension. The right ventricular systolic pressure, as measured by Doppler, is 19.26mmHg. There is no pulmonic regurgitation present. The aortic root size is normal. The inferior vena cava is mildly dilated. There is no pericardial effusion. CONCLUSIONS -------- 1. The left ventricular size is normal. 2. There is moderate concentric left ventricular hypertrophy. 3. Overall left ventricular systolic function is normal with, an EF between 55 - 60 %. 4. The diastolic filling pattern is normal for the age of the patient 8.66 5. There is trace mitral regurgitation. 6. Trace tricuspid regurgitation present. 7. The inferior vena cava is mildly dilated. COMMERCIAL APPRAISER: Angeline Roman RDCS
--- NOTE | 2020-04-19 02:46 | CONS ---
CONSULTATION CHIEF COMPLAINT: Chest pain. Mr. Moise is a 60-year-old gentleman with history of dyslipidemia who works as a galley cook at [employer], who presented to hospital complaining of chest pain. He describes it as chest pressure and also has had near-syncopal events. His syncopal events happened mostly at rest. He also had vague chest discomfort, with mild intensity precordial without definite radiation to neck, arm or back. At the time of my evaluation, he appears comfortable at rest and is free of symptoms. EKG shows sinus rhythm, normal axis, normal intervals. One set of troponin is negative. The patient had a stress echo in August of 2019 that was negative. He exercised for 7-1/2 minutes on Clive protocol at that time. He also had an echocardiogram that showed normal LV function. At the time of my evaluation, he is comfortable at rest and one set of troponin is negative. PAST MEDICAL HISTORY: Significant for dyslipidemia. The patient was on Lipitor. ALLERGIES: No known drug allergies. FAMILY HISTORY: Significant for premature coronary artery disease in his father. SOCIAL HISTORY: He denies smoking, EtOH abuse or drug abuse. REVIEW OF SYSTEMS: HEENT is unremarkable. CARDIAC: As described above. RESPIRATORY: As described above. GI: Negative. GENITOURINARY: Negative. ALLERGY/IMMUNOLOGY: Negative. SKIN: Negative. MUSCULOSKELETAL: Significant for arthritis. PSYCHOSOCIAL: Negative. ENDOCRINE: Negative. HEMATOLOGIC: Negative. DERMATOLOGICAL: Negative. ONCOLOGICAL: Negative. MACHINE BRUSH MAKER: As described above. Rest of the system review is not relevant. PHYSICAL EXAMINATION: On exam, patient is comfortable at rest. Afebrile. Heart rate is 70 beats per minute. Blood pressure is 144/74. Respiratory rate is 18. O2 saturation is 97% of room air. There is no jugular venous distention. Carotid upstroke is normal. There is no bruit. Chest exam reveals good air entry bilaterally. Heart exam reveals first and second heart sounds. No gallop. No murmur. No rub. Abdomen is soft, nontender. Examination of extremities did not reveal edema. Peripheral pulses are felt. MACHINE BRUSH MAKER exam did not reveal focal neurological deficits. There are no orthostatic changes. LABS: Labs have been reviewed. EKG has been reviewed. ASSESSMENT: 1. Atypical chest pain syndrome. 2. Near syncope. PLAN: I will obtain a 2D echo on him. Obtain serial CPKs and troponins to rule out myocardial infarction. The patient had a negative stress test within the last 1 year. We will watch him on telemetry and decide on further course of action based on how his testing evolves. MATTHEW / JACYN: [id number] /
[2020-04-19 05:20] LABS: Cholesterol 233 mg/dL (<200); HDL Cholesterol 35 mg/dL (40-60); LDL Cholesterol,Calculated 139 mg/dL (0-99); Triglycerides 293 mg/dL (<150)
[2020-04-19] MEDS: NITROGLYCERIN OINT 1 INCH/GM PACKET TOPICAL SCH (06:58)
[2020-04-19 07:42] VITALS: RESP 16; TEMP 97.9
[2020-04-19] MEDS: ATORVASTATIN 40 MG TAB PO SCH (08:38)
[2020-04-19] MEDS ORDERED: ASPIRIN 325 MG TAB PO SCH (09:00)
--- NOTE | 2020-04-19 10:25 | P.PN ---
Subjective Progress Note Date: 04/19/20 CHIEF COMPLAINT: Chest pain HISTORY OF PRESENT ILLNESS: Examined this might bedside. He denies chest pain or pressure. He denies shortness of breath. Troponins negative 3. D-dimer 0.22. Echocardiogram reveals ejection fraction between 55 and 60%, trace tri cuspid regurgitation, and trace mitral regurgitation. LDL 139. Patient is currently on Lipitor 20 mg daily PHYSICAL EXAM: VITAL SIGNS: Reviewed. GENERAL: Well-developed in no acute distress. NECK: Supple. No JVD or thyromegaly LUNGS: Respirations even and unlabored. Lungs essentially clear to auscultation bilaterally. HEART: Regular rate and rhythm. S1 and S2 heard. EXTREMITIES: Normal range of motion. No clubbing or cyanosis. Peripheral pulses intact. No lower extremity edema ASSESSMENT: Chest pain, atypical Hyperlipidemia PLAN: An acute coronary event has been ruled out Increase Lipitor to 40 mg daily secondary to abnormal LDL Patient is stable for discharge from a cardiac perspective. Will defer to internal medicine Patient to follow up outpatient with Dr. Machado Nurse practitioner note has been reviewed by physician. Signing provider agrees with the documented findings, assessment, and plan of care. Objective - Vital Signs Vital signs: Vital Signs Temp 97.9 F 04/19/20 07:41 Pulse 81 04/19/20 07:41 Resp 16 04/19/20 07:41 BP 119/65 04/19/20 07:41 Pulse Ox 97 04/19/20 07:41 Intake & Output 04/18/20 04/19/20 04/19/20 18:59 06:59 18:59 Intake Total 580 Balance 580 Weight 106.594 kg Intake: Oral 580 Other: Voiding Method Toilet Toilet # Voids 1 1 2 - Labs CBC & Chem 7: 04/18/20 14:03 04/18/20 14:03 Labs: Abnormal Lab Results - Last 24 Hours (Table) 04/18/20 04/19/20 Range/Units 14:03 04:41 Sodium 136 L (137-145) mmol/L Glucose 118 H (74-99) mg/dL Triglycerides 293 H (<150) mg/dL Cholesterol 233 H (<200) mg/dL LDL Cholesterol, Calc 139 H (0-99) mg/dL HDL Cholesterol 35 L (40-60) mg/dL
[2020-04-19 12:26] VITALS: BP 129/84; PULSE 83
--- NOTE | 2020-04-19 13:10 | P.HPIM ---
History of Present Illness H&P Date: 04/19/20 Chief Complaint: Chest pain, near syncope History and Physical and Discharge Summary This is a 53-year-old obese gentleman with past medical history of hyperlipidemia presented to the ER with complaints of multiple new syncopal episodes over the last 2 weeks. Admits to being under a significant amount of stress-personal. Reports when he felt like passing out, he would sit down and the symptoms subsided. With the reoccurrence of episodes he began having some nonradiating chest pain or palpitations. Denies diaphoresis. Denies shortness of breath. Denies nausea vomiting, diarrhea. Denies abdominal pain. Denies cough or congestion. Denies fever or chills. Chest x-ray reported no evidence for acute pulmonary disease. EKG reported normal sinus rhythm, troponin is negative 3. Echo reported normal LV function, EF 55-60%. Cardiology reports a negative stress echo in August 2019. Negative for orthostatic hypotension. Hematology, coagulation, chemistry profiles unremarkable. Lipid profile reported triglycerides 293, cholesterol 233, LDL 139 and HDL 35. Magnesium 1.8 on admission with follow-up magnesium level pending. Review of Systems ROS Statement: Those systems with pertinent positive or pertinent negative responses have been documented in the HPI. ROS Other: All systems not noted in ROS Statement are negative. Past Medical History Past Medical History: No Reported History, Hyperlipidemia History of Any Multi-Drug Resistant Organisms: None Reported Past Surgical History: Orthopedic Surgery Additional Past Surgical History / Comment(s): left knee, thumb Past Anesthesia/Blood Transfusion Reactions: No Reported Reaction Past Psychological History: No Psychological Hx Reported Smoking Status: Never smoker Past Alcohol Use History: None Reported Past Drug Use History: None Reported Medications and Allergies Home Medications Medication Instructions Recorded Confirmed Type Acetaminophen Tab [Tylenol Tab] 500 mg PO Q6H PRN 04/18/20 04/18/20 History Atorvastatin Calcium [Lipitor] 40 mg PO DAILY #90 tablet 04/19/20 Rx busPIRone HCL [Buspar] 7.5 mg PO BID 30 Days #98 tab 04/19/20 Rx Allergies Allergy/AdvReac Type Severity Reaction Status Date / Time latex Allergy Rash/Hives Verified 04/18/20 15:39 Physical Exam Vitals: Vital Signs Temp Pulse Pulse Pulse Pulse Pulse Resp 04/19/20 07:41 97.9 F 81 16 04/19/20 02:29 98.0 F 85 18 04/18/20 21:00 97.8 F 71 18 04/18/20 16:05 98.3 F 71 04/18/20 15:31 79 90 73 18 04/18/20 13:44 97.7 F 84 18 BP BP BP BP BP Pulse Ox 04/19/20 07:41 119/65 97 04/19/20 02:29 120/75 95 04/18/20 21:00 138/86 97 04/18/20 16:05 122/74 97 04/18/20 15:31 135/90 140/93 139/87 98 04/18/20 13:44 150/85 98 Intake and Output 04/18/20 04/19/20 04/19/20 22:59 06:59 14:59 Intake Total 580 Balance 580 Intake: Oral 580 Other: Voiding Method Toilet Toilet Toilet # Voids 1 1 2 Weight 106.594 kg PHYSICAL EXAM: VITAL SIGNS: As above GENERAL: Sitting up in bed, no acute distress HEENT: Conjunctivae normal. eyes normal. NECK: No JVD. No thyroid enlargement. No LNs CARDIOVASCULAR: S1, S2 regular.. No murmur RESPIRATION: Breath sounds diminished in the bases. No rhonchi or crackles. No bronchial breathing. ABDOMEN: Soft, nontender . No guarding. no masses palpable. No ascites, No hepatosplenomegaly.Bowel sounds heard. LEGS: No edema. no swelling , no calf tenderness. PSYCHIATRY: Alert and oriented X3, mood and affect normal. NERVOUS SYSTEM: Cranial N 2-12 grossly normal. Moves all 4 limbs. No focal deficits. Strength and sensation grossly intact. Skin: Warm and dry no rash Lymphatic system. No LN neck axilla. Results CBC & Chem 7: 04/18/20 14:03 04/18/20 14:03 Labs: Abnormal Lab Results - Last 24 Hours (Table) 04/18/20 04/19/20 Range/Units 14:03 04:41 Sodium 136 L (137-145) mmol/L Glucose 118 H (74-99) mg/dL Triglycerides 293 H (<150) mg/dL Cholesterol 233 H (<200) mg/dL LDL Cholesterol, Calc 139 H (0-99) mg/dL HDL Cholesterol 35 L (40-60) mg/dL Thrombosis Risk Factor Assmnt - Choose All That Apply Each Factor Represents 1 point: Age 41-60 years, Obesity (BMI >25) Thrombosis Risk Factor Assessment Total Risk Factor Score: 2 Thrombosis Risk Factor Assessment Level: Low Risk Assessment and Plan Assessment: Atypical chest pain, negative stress test in 09/07. Possibly related to stress. Near syncope, possibly vasovagal Hyperlipidemia Obesity, BMI 34.7 Plan: Continue current medication regime ,monitoring and symptomatic treatment. Evaluated and cleared for discharge by cardiology. Statin dose increased. BuSpar ordered as recommended per Dr. Blackman. Patient will be discharged home in a stable condition with guarded prognosis pending another set of orthostatic vital signs. The impression and plan of care has been dictated as directed. : I performed a history and examination of this patient, discussed the same with the dictator. I agree with the dictator's note ,documented as a scribe. Any additional findings or plans will be noted.
== END 2020-04-19 14:08 | disposition home or self-care (01) ==
LOC: EC 13:36 → 1SOBS 15:18
PROVIDERS: ADMIT Family Medicine; ATTEND Family Medicine
DX: R07.89 Other chest pain (principal); R55 Syncope and collapse; R07.2 Precordial pain; E78.5 Hyperlipidemia, unspecified; E78.00 Pure hypercholesterolemia, unspecified; E66.9 Obesity, unspecified; Z79.899 Other long term (current) drug therapy; Z91.040 Latex allergy status; Z98.890 Other specified postprocedural states; Z68.34 Body mass index [BMI] 34.0-34.9, adult; Z82.49 Family history of ischemic heart disease and other diseases of the circulatory system
CPT/HCPCS: 99285; 36415; 93005; 93306; 85379; 80061; 80053; 83735 ×2; 84484; 85025; 85610; 85730; 71046; G0378 ×2

== ENCOUNTER → 2020-05-14 | Day surgery (SDC) | payer OTHER ==
[2020-05-13 08:25] VITALS: BMI 36.9
[~2020-05-14] MED LIST: SODIUM CHLORIDE 0.9% 1,000 ML IV SCH
[2020-05-14 11:47] VITALS: BP 126/60; PULSE 76; RESP 18; TEMP 98.1
--- NOTE | 2020-05-14 15:09 | P.EPPROC ---
- EP Procedure Note Electrophysiology Procedure Note: Diagnosis Recurrent syncope Twelve-lead ECG shows sinus rhythm normal OK narrow QRS terminal QRS fractionation in the inferior leads 3 and aVF Normal QT interval Tilt table test for protocol Baseline blood pressure 127/79 mmHg Baseline 173 beats a minute Patient was tilted upright at an angle of 70 per protocol 100 and blood pressure remained in the normal range. There was mild increase in heart rate into the high 80s and 90s. Patient complained of being lightheaded wall the test. No drop in blood [id number] change in heart rate Impression Normal chronic intervals until ECG Very subtle QRS fractionation in the inferior leads Patient complaining of lightheadedness through the tilt table test but without any change in blood pressure and a minimal increase in heart rate by about 20 beats
== END ==
LOC: CATHEP 11:16
PROVIDERS: ATTEND Internal Medicine Clinical Cardiac Electrophysiology
DX: R55 Syncope and collapse (principal)
CPT/HCPCS: 93660

== ENCOUNTER 2020-06-10 02:46 | Emergency (ER) | payer OTHER ==
[2020-06-10] MEDS ORDERED: MORPHINE SULFATE 4 MG/ML SYRINGE IV STA (03:04)
[2020-06-10] MEDS ORDERED: SODIUM CHLORIDE 0.9% 1,000 ML IV STA ×2 (03:04)
[2020-06-10] MEDS ORDERED: PANTOPRAZOLE 40 MG/10 ML VIAL IVP STA (03:05)
[2020-06-10] MEDS ORDERED: ONDANSETRON 4 MG/2 ML VIAL IVP STA (03:05)
--- NOTE | 2020-06-10 03:23 | ED ---
Abdominal Pain HPI - General Chief Complaint: Abdominal Pain Stated Complaint: Abdominal pain Time Seen by Provider: 06/10/20 02:52 Source: patient, RN notes reviewed, old records reviewed Mode of arrival: wheelchair Limitations: no limitations - History of Present Illness Initial Comments: This is a 52-year-old male DF for evaluation of severe sudden onset right flank right groin pain right-sided abdominal pain. This will more from sleep of brain ER with significant nausea. Patient's medical history aside from new diagnosis of hypertension not currently on medications and high cholesterol is nonexistent. No surgical history. No prior history of similar complaint feeling well lately with no fevers. Urinated without difficulty no blood, bowel movement yesterday without difficulty no problems. No recent travel history or sick contacts. No cough congestion or shortness breath nausea vomiting or diarrhea MD Complaint: abdominal pain, flank pain (Right-sided) -: hour(s) Location: RLQ, suprapubic, R flank Radiation: RLQ Migration to: suprapubic Severity: severe Severity scale (1-10): 10 Quality: stabbing, sharp Consistency: constant Improves With: nothing Worsens With: nothing Context: other (None) Associated Symptoms: nausea, vomiting Treatments Prior to Arrival: other (None non-) - Related Data Home Medications Medication Instructions Recorded Confirmed Acetaminophen Tab [Tylenol Tab] 500 mg PO Q6H PRN 04/18/20 05/14/20 Previous Rx's Medication Instructions Recorded Atorvastatin Calcium [Lipitor] 40 mg PO DAILY #90 tablet 04/19/20 busPIRone HCL [Buspar] 7.5 mg PO BID 30 Days #98 tab 04/19/20 Allergies Allergy/AdvReac Type Severity Reaction Status Date / Time latex Allergy Rash/Hives Verified 06/10/20 02:55 Review of Systems ROS Statement: Those systems with pertinent positive or pertinent negative responses have been documented in the HPI. ROS Other: All systems not noted in ROS Statement are negative. Past Medical History Past Medical History: Hyperlipidemia, Syncope Additional Past Medical History / Comment(s): RECENT INPT 04/18-04/19 FOR CHEST PAIN AND SYNCOPE History of Any Multi-Drug Resistant Organisms: None Reported Past Surgical History: Orthopedic Surgery Additional Past Surgical History / Comment(s): left knee, RT thumb Past Anesthesia/Blood Transfusion Reactions: No Reported Reaction Past Psychological History: No Psychological Hx Reported Smoking Status: Former smoker Past Alcohol Use History: Occasional Past Drug Use History: None Reported - Past Family History Mother Family Medical History: No Reported History General Exam Limitations: no limitations General appearance: alert, in no apparent distress, anxious (In pain) Head exam: Present: atraumatic, normocephalic, normal inspection Eye exam: Present: normal appearance, PERRL, EOMI. Absent: scleral icterus, conjunctival injection, periorbital swelling ENT exam: Present: normal exam, mucous membranes moist Neck exam: Present: normal inspection. Absent: tenderness, meningismus, lymphadenopathy Respiratory exam: Present: normal lung sounds bilaterally. Absent: respiratory distress, wheezes, rales, rhonchi, stridor Cardiovascular Exam: Present: regular rate, normal rhythm, normal heart sounds. Absent: systolic murmur, diastolic murmur, rubs, gallop, clicks GI/Abdominal exam: Present: soft, normal bowel sounds. Absent: distended, tenderness, guarding, rebound, rigid Extremities exam: Present: normal inspection, full ROM, normal capillary refill. Absent: tenderness, pedal edema, joint swelling, calf tenderness Back exam: Present: normal inspection Neurological exam: Present: alert, oriented X3, CN II-XII intact Psychiatric exam: Present: normal affect, normal mood Skin exam: Present: warm, dry, intact, normal color. Absent: rash Course Vital Signs 06/10/20 02:52 Temperature 97.6 F Pulse Rate 86 Respiratory 18 Rate Blood Pressure 166/91 O2 Sat by Pulse 99 Oximetry - Reevaluation(s) Reevaluation #1: 06/10/20 03:28 Medical records reviewed Reevaluation #2: 06/10/20 04:27 Patient is having still severe pain 06/10/20 04:27 After site on her medications patient pain is controlled Reevaluation #3: 06/10/20 04:27 Patient informed results and questions have been answered here in the ER Medical Decision Making - Medical Decision Making This female DEL with a right 0.3 cm kidney stone. Patient will be discharged home pain is controlled - Lab Data Result diagrams: 06/10/20 03:34 06/10/20 03:34 Lab Results 06/10/20 06/10/20 06/10/20 Range/Units 03:34 03:34 03:34 WBC 6.7 (3.8-10.6) k/uL RBC 5.28 (4.30-5.90) m/uL Hgb 15.5 (13.0-17.5) gm/dL Hct 49.2 (39.0-53.0) % MCV 93.2 (80.0-100.0) fL MCH 29.4 (25.0-35.0) pg MCHC 31.5 (31.0-37.0) g/dL RDW 13.4 (11.5-15.5) % Plt Count 261 (150-450) k/uL MPV 8.3 Neutrophils % 50 % Lymphocytes % 35 % Monocytes % 9 % Eosinophils % 4 % Basophils % 1 % Neutrophils # 3.3 (1.3-7.7) k/uL Lymphocytes # 2.4 (1.0-4.8) k/uL Monocytes # 0.6 (0-1.0) k/uL Eosinophils # 0.2 (0-0.7) k/uL Basophils # 0.0 (0-0.2) k/uL Sodium 138 (137-145) mmol/L Potassium 4.9 (3.5-5.1) mmol/L Chloride 108 H (98-107) mmol/L Carbon Dioxide 21 L (22-30) mmol/L Anion Gap 9 mmol/L BUN 12 (9-20) mg/dL Creatinine 1.08 (0.66-1.25) mg/dL Est GFR (CKD-EPI)AfAm 87 (>60 ml/min/1.73 sqM) Est GFR (CKD-EPI)NonAf 75 (>60 ml/min/1.73 sqM) Glucose 140 H (74-99) mg/dL Plasma Lactic Acid [place] (0.7-2.0) mmol/L Calcium 9.3 (8.4-10.2) mg/dL Total Bilirubin 1.0 (0.2-1.3) mg/dL AST 47 (17-59) U/L ALT 31 (4-49) U/L Alkaline Phosphatase 42 (38-126) U/L Creatine Kinase 568 H (55-170) U/L Total Protein 7.7 (6.3-8.2) g/dL Albumin 4.5 (3.5-5.0) g/dL Amylase 92 (30-110) U/L Lipase 216 (23-300) U/L Urine Color Yellow Urine Appearance Clear (Clear) Urine pH 5.5 (5.0-8.0) Ur Specific [place] 1.019 (1.001-1.035) Urine Protein Negative (Negative) Urine Glucose (UA) Negative (Negative) Urine Ketones Negative (Negative) Urine Blood Moderate H (Negative) Urine Nitrite Negative (Negative) Urine Bilirubin Negative (Negative) Urine Urobilinogen <2.0 (<2.0) mg/dL Ur Leukocyte Esterase Negative (Negative) Urine RBC 114 H (0-5) /hpf Urine WBC 1 (0-5) /hpf Urine Mucus Rare H (None) /hpf 06/10/20 Range/Units 03:34 WBC (3.8-10.6) k/uL RBC (4.30-5.90) m/uL Hgb (13.0-17.5) gm/dL Hct (39.0-53.0) % MCV (80.0-100.0) fL MCH (25.0-35.0) pg MCHC (31.0-37.0) g/dL RDW (11.5-15.5) % Plt Count (150-450) k/uL MPV Neutrophils % % Lymphocytes % % Monocytes % % Eosinophils % % Basophils % % Neutrophils # (1.3-7.7) k/uL Lymphocytes # (1.0-4.8) k/uL Monocytes # (0-1.0) k/uL Eosinophils # (0-0.7) k/uL Basophils # (0-0.2) k/uL Sodium (137-145) mmol/L Potassium (3.5-5.1) mmol/L Chloride (98-107) mmol/L Carbon Dioxide (22-30) mmol/L Anion Gap mmol/L BUN (9-20) mg/dL Creatinine (0.66-1.25) mg/dL Est GFR (CKD-EPI)AfAm (>60 ml/min/1.73 sqM) Est GFR (CKD-EPI)NonAf (>60 ml/min/1.73 sqM) Glucose (74-99) mg/dL Plasma Lactic Acid [place] 1.7 (0.7-2.0) mmol/L Calcium (8.4-10.2) mg/dL Total Bilirubin (0.2-1.3) mg/dL AST (17-59) U/L ALT (4-49) U/L Alkaline Phosphatase (38-126) U/L Creatine Kinase (55-170) U/L Total Protein (6.3-8.2) g/dL Albumin (3.5-5.0) g/dL Amylase (30-110) U/L Lipase (23-300) U/L Urine Color Urine Appearance (Clear) Urine pH (5.0-8.0) Ur Specific [place] (1.001-1.035) Urine Protein (Negative) Urine Glucose (UA) (Negative) Urine Ketones (Negative) Urine Blood (Negative) Urine Nitrite (Negative) Urine Bilirubin (Negative) Urine Urobilinogen (<2.0) mg/dL Ur Leukocyte Esterase (Negative) Urine RBC (0-5) /hpf Urine WBC (0-5) /hpf Urine Mucus (None) /hpf - Radiology Data Radiology results: report reviewed (CT head and pelvis positive for 3 mm kidney stone in the right ureter), image reviewed Disposition Clinical Impression: Right ureteral stone Disposition: HOME SELF-CARE Condition: Good Instructions (If sedation given, give patient instructions): Kidney Stones (ED) Is patient prescribed a controlled substance at d/c from ED?: No Referrals: Eleazar Blackman MD [Primary Care Provider] - 1-2 days
[2020-06-10 03:46] LABS: Basophils % (A) 1 %; Eosinophils # (A) 0.2 k/uL (0-0.7); Eosinophils % (A) 4 %; HCT 49.2 % (39.0-53.0); HGB 15.5 gm/dL (13.0-17.5); Lymphocytes # (A) 2.4 k/uL (1.0-4.8); Lymphocytes % (A) 35 %; MCH 29.4 pg (25.0-35.0); MCHC 31.5 g/dL (31.0-37.0); MCV 93.2 fL (80.0-100.0); Mean Platelet Volume 8.3; Monocytes # (A) 0.6 k/uL (0-1.0); Monocytes % (A) 9 %; Neutrophils # (A) 3.3 k/uL (1.3-7.7); Neutrophils % (A) 50 %; Platelet Count 261 k/uL (150-450); RBC 5.28 m/uL (4.30-5.90); RDW 13.4 % (11.5-15.5); WBC 6.7 k/uL (3.8-10.6)
[2020-06-10 03:50] LABS: Appearance,Urine Clear (Clear); Bilirubin,Urine Negative (Negative); Blood,Urine Moderate (Negative); Color,Urine Yellow; Glucose,Urine (UA) Negative (Negative); Ketones,Urine Negative (Negative); Leukocyte Esterase,Urine Negative (Negative); Mucus,Urine Rare /hpf; Nitrite,Urine Negative (Negative); PH, Urine 5.5 (5.0-8.0); Protein,Urine Negative (Negative); RBC,Urine 114 /hpf (0-5); Specific Gravity,Urine 1.019 (1.001-1.035); Urobilinogen,Urine <2.0 mg/dL (<2.0); WBC,Urine 1 /hpf (0-5)
[2020-06-10 03:57] LABS: Albumin 4.5 g/dL (3.5-5.0); Calcium 9.3 mg/dL (8.4-10.2); Total Protein 7.7 g/dL (6.3-8.2)
[2020-06-10 04:03] LABS: Potassium 4.9 mmol/L (3.5-5.1)
[2020-06-10] MEDS ORDERED: MORPHINE SULFATE 4 MG/ML SYRINGE IVP STA (04:16)
[2020-06-10] MEDS ORDERED: KETOROLAC 15 MG/ML 1 ML VIAL IM STA (04:16)
--- NOTE | 2020-06-10 04:22 | CT ---
EXAM: CT Abdomen and Pelvis Without Intravenous Contrast CLINICAL HISTORY: Abdominal pain. Right flank pain. Nausea. TECHNIQUE: Axial computed tomography images of the abdomen and pelvis without intravenous contrast. CTDI is 18.984 mGy and DLP is 1078 mGy-cm. This CT exam was performed using one or more of the following dose reduction techniques: automated exposure control, adjustment of the mA and/or kV according to patient size, and/or use of iterative reconstruction technique. COMPARISON: No previous study. FINDINGS: Lung bases: Subsegmental atelectasis posteriorly at the lung bases. Pleural space: No pleural effusions. Heart: Heart is top normal in size. Mediastinum: Small hiatal hernia and probable distal esophagitis. ABDOMEN: Liver: Diffuse fatty infiltration of the liver is noted. Best seen on axial image 19, there is an ill-defined vague 4.6 x 4.7 cm area of increased density within the left lobe of liver near the dome of the liver of uncertain etiology. Repeat CT imaging of the abdomen with contrast demonstration or ultrasonography of the right upper quadrant is advised for further assessment. Gallbladder and bile ducts: See below. Pancreas: See below. Spleen: Spleen is normal in contour. Adrenals: The adrenal glands, the head, body, tail of the pancreas and the gallbladder are unremarkable. Kidneys and ureters: Mild to moderate hydronephrosis of the right kidney. Stranding about the right perinephric space. Mild right hydroureter down to the right ureterovesical junction where there is a 0. 3 cm obstructing calculus best seen on series 201 image 129. Process. Stomach and bowel: Moderate quantity of stool throughout the colon. No obstruction. No mucosal thickening. PELVIS: Appendix: No findings to suggest acute appendicitis. Bladder: Bladder is underdistended. No stones. Reproductive: Unremarkable as visualized. ABDOMEN and PELVIS: Intraperitoneal space: Unremarkable. No free air. No significant fluid collection. Bones/joints: Moderate degenerative disc disease of the thoracolumbar spine. Moderate osteoarthritic changes about the sacroiliac joints. Vacuum disc L5-S1. No spondylolysis or spinal listhesis. Sacrum and coccyx are unremarkable. No acute fracture. No dislocation. Soft tissues: Unremarkable. Vasculature: Unremarkable. No abdominal aortic aneurysm. Lymph nodes: Unremarkable. No enlarged lymph nodes. Other findings: Elevation of the right hemidiaphragm. IMPRESSION: 1. The dominant finding is a 0.3 cm calculus at the right ureterovesical junction resulting in right hydronephrosis and right hydroureter. 2. Stranding about the right perinephric space.
[2020-06-10] MEDS ORDERED: Acetaminophen-Codeine 300-30mg TAB PO STA (04:27)
[2020-06-10] MEDS ORDERED: ACET/COD 300 MG/30 MG STARTER PACK 6 TAB BTL PO STA (04:27)
[2020-06-10] MEDS ORDERED: TAMSULOSIN 0.4 MG CAP.ER.24H PO STA (04:27)
[2020-06-10] MEDS ORDERED: IBUPROFEN 600 MG STARTER PACK 4 TAB BTL PO STA (04:27)
[2020-06-10 05:48] VITALS: BP 145/69; PULSE 82; RESP 15; TEMP 97.9
== END 2020-06-10 05:55 | disposition home or self-care (01) ==
LOC: EC 02:46
DX: N20.1 Calculus of ureter (principal); Z91.040 Latex allergy status; Z87.891 Personal history of nicotine dependence
CPT/HCPCS: 36415; 80053; 82150; 82550; 83605; 83690; 85025; 81001; 74176; 99285; 96374; 96375 ×2; 96376; 96361 ×2; 96372; J2270; J2405; J1885; C9113

== ENCOUNTER → 2023-06-02 | Outpatient (CLI) | payer OTHER ==
--- NOTE | 2023-06-02 17:53 | XR ---
EXAMINATION TYPE: XR lumbar spine 2 or 3V DATE OF EXAM: 06/02/2023 5:43 PM CLINICAL INDICATION:Male, 63 years old with history of R20.9,S39.012A; COMPARISON: 12/08/2017 TECHNIQUE: XR lumbar spine 2 or 3V - Frontal, lateral and coned in L5-S1 lateral views of the spine. FINDINGS: No evidence of any acute osseous pathology. No evidence of loss of vertebral body height i s seen. There is normal alignment of the lumbar vertebral bodies. Mild scattered disc space narrowing . Multilevel marginal osteophyte formation throughout the visualized spine. There is facet joint arth ropathy throughout the spine. Scattered at least mild neural foraminal stenosis. IMPRESSION: 1. No acute fracture. 2. Moderate multilevel disc degeneration.
--- NOTE | 2023-06-02 17:54 | XR ---
EXAMINATION TYPE: XR thoracic spine complete DATE OF EXAM: 06/02/2023 5:43 PM CLINICAL INDICATION:Male, 63 years old with history of R20.9,S39.012A; [facility] COMPARISON: None TECHNIQUE: XR thoracic spine complete views of the thoracic spine in Frontal and lateral projections. FINDINGS: No evidence of acute fracture. There is scattered multilevel disk space narrowing without loss of ve rtebral body height. There is normal alignment of the thoracic vertebral bodies. Scattered osteophyte formation along the anterior and lateral aspects of the vertebral bodies. Neural foramen are patent given limitations of this exam. Spinal canal appears patent. IMPRESSION: No acute osseous pathology.
== END | disposition home or self-care (01) ==
LOC: RADXRMAIN 16:47
PROVIDERS: ATTEND Emergency Medicine
DX: S39.012A Strain of muscle, fascia and tendon of lower back, initial encounter (principal); M51.36 Other intervertebral disc degeneration, lumbar region; R20.9 Unspecified disturbances of skin sensation; X58.XXXA Exposure to other specified factors, initial encounter
CPT/HCPCS: 72072; 72100

== ENCOUNTER 2023-08-06 10:59 | Observation (INO) | payer OTHER ==
--- NOTE | 2023-08-06 11:03 | ED ---
General Adult HPI - General Source: patient, RN notes reviewed Mode of arrival: ambulatory Limitations: no limitations <Whitney Aguirre - Last Filed: 08/06/23 11:04> <Sandor Rizzo - Last Filed: 08/06/23 12:56> - General Chief complaint: Chest Pain Stated complaint: chest pain Time Seen by Provider: 08/06/23 11:00 - History of Present Illness Initial comments: This is a 63-year-old male who presents to the emergency department for chest pain. States that this has been intermittent over the last 1-2 weeks, but seems to be getting worse. Reports associated shortness of breath. He initially thought his symptoms were related to indigestion. Denies any cardiac history. States that he had testing done at one point, but is unsure what the results were. (Whitney Aguirre) This is a 63-year-old male who presents emergency Department complaining of chest pain. Patient states the chest pain is been intermittent all week long. Patient states his been some associated difficulty breathing. Patient states the pain radiates down his left arm when it occurs. Patient denies any diaphor etic episodes. Patient denies any recent fever chills or cough. Patient states she does have high cholesterol but does not take any medications for. Patient denies diabetes or high blood pressure. Patient denies any smoking history. Patient denies any previous heart history. (Sandor Rizzo) - Related Data Home Medications Medication Instructions Recorded Confirmed Ketorolac [Toradol] 10 mg PO Q6H PRN 08/06/23 08/06/23 Allergies Allergy/AdvReac Type Severity Reaction Status Date / Time latex Allergy Rash/Hives Verified 08/06/23 12:50 Review of Systems ROS Other: All systems not noted in ROS Statement are negative. <Whitney Aguirre - Last Filed: 08/06/23 11:04> ROS Other: All systems not noted in ROS Statement are negative. <Sandor Rizzo - Last Filed: 08/06/23 12:56> ROS Statement: Those systems with pertinent positive or pertinent negative responses have been documented in the HPI. Past Medical History Past Medical History: Hyperlipidemia, Syncope Additional Past Medical History / Comment(s): RECENT INPT 04/18-04/19 FOR CHEST PAIN AND SYNCOPE History of Any Multi-Drug Resistant Organisms: None Reported Past Surgical History: Orthopedic Surgery Additional Past Surgical History / Comment(s): left knee, RT thumb Past Anesthesia/Blood Transfusion Reactions: No Reported Reaction Past Psychological History: No Psychological Hx Reported Smoking Status: Former smoker Past Alcohol Use History: Occasional Past Drug Use History: None Reported - Past Family History Mother Family Medical History: No Reported History <Whitney Aguirre - Last Filed: 08/06/23 11:04> General Exam <Whitney Aguirre - Last Filed: 08/06/23 11:04> <Sandor Rizzo - Last Filed: 08/06/23 12:56> - General Exam Comments Initial Comments: Visual Physical Exam Vital signs reviewed General: Well-appearing, nontoxic, no acute distress. Head: Normocephalic, atraumatic Eyes: PERRLA, EOMI ENT: Airway patent Chest: Nonlabored breathing Skin: No visual rash, normal skin tone Neuro: Alert and oriented 3 Musculoskeletal: No gross abnormalities (Whitney Aguirre) GENERAL: Patient is well-developed and well-nourished. Patient is nontoxic and well- hydrated and is in mild distress. ENT: Neck is soft and supple. No significant lymphadenopathy is noted. Oropharynx is clear. Moist mucous membranes. Neck has full range of motion without eliciting any pain. EYES: The sclera were anicteric and conjunctiva were pink and moist. Extraocular movements were intact and pupils were equal round and reactive to light. Eyelids were unremarkable. PULMONARY: Unlabored respirations. Good breath sounds bilaterally. No audible rales r honchi or wheezing was noted. CARDIOVASCULAR: There is a regular rate and rhythm without any murmurs gallops or rubs. ABDOMEN: Soft and nontender with normal bowel sounds. SKIN: Skin is clear with no lesions or rashes and otherwise unremarkable. NEUROLOGIC: Patient is alert and oriented x3. Cranial nerves II through XII are grossly intact. Motor and sensory are also intact. Normal speech, volume and content. Symmetrical smile. MUSCULOSKELETAL: Normal extremities with adequate strength and full range of motion. LYMPHATICS: No significant lymphadenopathy is noted PSYCHIATRIC: Normal psychiatric evaluation. (Sandor Rizzo) Course Vital Signs 08/06/23 08/06/23 11:05 11:25 Temperature 98.2 F Pulse Rate 101 H 51 L Respiratory 20 18 Rate Blood Pressure 150/77 147/76 O2 Sat by Pulse 98 95 Oximetry Medical Decision Making <Whitney Aguirre - Last Filed: 08/06/23 11:04> - Lab Data Result diagrams: 08/06/23 11:25 08/06/23 11:25 <Sandor Rizzo - Last Filed: 08/06/23 12:56> - Medical Decision Making I performed the QuickNote portion of this chart. Signed Whitney Aguirre PA-C. (Whitney Aguirre) EKG is interpreted by myself. EKG shows sinus tachycardia at 100/m [place] interval 138 QRS is 93 QT interval 335 QTC is 392. Patient's EKG shows no ST segment palpitations or depression. Was pt. sent in by a medical professional or institution (EVAN Marcus, EMERGENCY MEDICINE PHYSICIAN, urgent care, hospital, or alf...) When possible be specific @ -No Did you speak to anyone other than the patient for history (EMS, parent, family, police, friend...)? What history was obtained from this source @ -No Did you review nursing and triage notes (agree or disagree)? Why? @ -I reviewed and agree with nursing and triage notes Were old charts reviewed (outside hosp., previous admission, EMS record, old EKG, old radiological studies, urgent care reports/EKG's, alf records)? Report findings @ -I reviewed prior charts prior labwork on this patient Differential Diagnosis (chest pain, altered mental status, abdominal pain women, abdominal pain men, vaginal bleeding, weakness, fever, dyspnea, syncope, headache, dizziness, GI bleed, back pain, seizure, CVA, palpatations, mental health, musculoskeletal)? @ -Differential Chest Pain: Stable Angina, Unstable Angina, STEMI, NSTEMI Aortic Dissection, Pneumothorax, Musculoskeletal, Esophageal Spasm GERD, Cholecystitis, Pancreatitis, Zoster, this is not meant to be an all-inclusive list. EKG interpreted by me (3pts min.). @ -As above X-rays interpreted by me (1pt min.). @ -Chest x-ray shows no acute abnormality CT interpreted by me (1pt min.). @ -None done U/S interpreted by me (1pt. min.). @ -None done What testing was considered but not performed or refused? (CT, X-rays, U/S, labs)? Why? @ -None What meds were considered but not given or refused? Why? @ -None Did you discuss the management of the patient with other professionals (professionals i.e. , PA, EMERGENCY MEDICINE PHYSICIAN, lab, RT, psych nurse, social work administrator, sole buffer, teacher, air control/anti air warfare officer, rn case management)? Give summary @ -I spoke with Dr. cottrell he agreed to admit the patient Was smoking cessation discussed for >3mins.? @ -No Was critical care preformed (if so, how long)? @ -No Were there social determinants of health that impacted care today? How? (Homel essness, low income, unemployed, alcoholism, drug addiction, transportation, low edu. Level, literacy, decrease access to med. care, fci, rehab)? @ -No Was there de-escalation of care discussed even if they declined (Discuss DNR or withdrawal of care, Hospice)? DNR status @ -No What co-morbidities impacted this encounter? (DM, HTN, Smoking, COPD, CAD, Cancer, CVA, ARF, Chemo, Hep., AIDS, mental health diagnosis, sleep apnea, morbid obesity)? @ -None Was patient admitted / discharged? Hospital course, mention meds given and route, prescriptions, significant lab abnormalities, going to OR and other pertinent info. @ -Patient received aspirin and nitroglycerin in the emergency department he continued to have intermittent chest pain at times. I spoke with Dr. cottrell he agreed to admit the patient I wrote admitting orders I consulted cardiology. Undiagnosed new problem with uncertain prognosis? @ -No Drug Therapy requiring intensive monitoring for toxicity (Heparin, Nitro, Insulin, Cardizem)? @ -No Were any procedures done? @ -No Diagnosis/symptom? @ -Chest pain Acute, or Chronic, or Acute on Chronic? @ -Acute Uncomplicated (without systemic symptoms) or Complicated (systemic symptoms)? @ -Complicated Side effects of treatment? @ -No Exacerbation, Progression, or Severe Exacerbation? @ -No Poses a threat to life or bodily function? How? (Chest pain, [place], [place], pneumonia, PE, COPD, DKA, ARF, appy, cholecystitis, CVA, Diverticulitis, Homicidal, Suicidal, threat to staff... and all critical care pts) @ -Yes this could lead to an [place] and underwent organ dysfunction (Sandor Rizzo) - Lab Data Lab Results 08/06/23 08/06/23 08/06/23 Range/Units 11:25 11:25 11:25 WBC 6.3 (3.8-10.6) k/uL RBC 5.47 (4.30-5.90) m/uL Hgb 16.5 (13.0-17.5) gm/dL Hct 51.2 (39.0-53.0) % MCV 93.5 (80.0-100.0) fL MCH 30.1 (25.0-35.0) pg MCHC 32.2 (31.0-37.0) g/dL RDW 12.8 (11.5-15.5) % Plt Count 248 (150-450) k/uL MPV 8.8 Neutrophils % 72 % Lymphocytes % 18 % Monocytes % 6 % Eosinophils % 2 % Basophils % 1 % Neutrophils # 4.5 (1.3-7.7) k/uL Lymphocytes # 1.2 (1.0-4.8) k/uL Monocytes # 0.4 (0-1.0) k/uL Eosinophils # 0.1 (0-0.7) k/uL Basophils # 0.0 (0-0.2) k/uL PT 10.3 (10.0-12.5) sec INR 0.9 (<1.2) APTT 25.7 (22.0-30.0) sec Sodium 138 (137-145) mmol/L Potassium 4.1 (3.5-5.1) mmol/L Chloride 106 (98-107) mmol/L Carbon Dioxide 25 (22-30) mmol/L Anion Gap 7 mmol/L BUN 19 (9-20) mg/dL Creatinine 1.04 (0.66-1.25) mg/dL Est GFR (CKD-EPI)AfAm 90 (>60 ml/min/1.73 sqM) Est GFR (CKD-EPI)NonAf 78 (>60 ml/min/1.73 sqM) Glucose 140 H (74-99) mg/dL Calcium 9.2 (8.4-10.2) mg/dL Magnesium 1.9 (1.6-2.3) mg/dL Total Bilirubin 0.8 (0.2-1.3) mg/dL AST 32 (17-59) U/L ALT 33 (4-49) U/L Alkaline Phosphatase 63 (38-126) U/L Troponin I (0.000-0.034) ng/mL Total Protein 7.5 (6.3-8.2) g/dL Albumin 4.5 (3.5-5.0) g/dL 08/06/23 Range/Units 11:25 WBC (3.8-10.6) k/uL RBC (4.30-5.90) m/uL Hgb (13.0-17.5) gm/dL Hct (39.0-53.0) % MCV (80.0-100.0) fL MCH (25.0-35.0) pg MCHC (31.0-37.0) g/dL RDW (11.5-15.5) % Plt Count (150-450) k/uL MPV Neutrophils % % Lymphocytes % % Monocytes % % Eosinophils % % Basophils % % Neutrophils # (1.3-7.7) k/uL Lymphocytes # (1.0-4.8) k/uL Monocytes # (0-1.0) k/uL Eosinophils # (0-0.7) k/uL Basophils # (0-0.2) k/uL PT (10.0-12.5) sec INR (<1.2) APTT (22.0-30.0) sec Sodium (137-145) mmol/L Potassium (3.5-5.1) mmol/L Chloride (98-107) mmol/L Carbon Dioxide (22-30) mmol/L Anion Gap mmol/L BUN (9-20) mg/dL Creatinine (0.66-1.25) mg/dL Est GFR (CKD-EPI)AfAm (>60 ml/min/1.73 sqM) Est GFR (CKD-EPI)NonAf (>60 ml/min/1.73 sqM) Glucose (74-99) mg/dL Calcium (8.4-10.2) mg/dL Magnesium (1.6-2.3) mg/dL Total Bilirubin (0.2-1.3) mg/dL AST (17-59) U/L ALT (4-49) U/L Alkaline Phosphatase (38-126) U/L Troponin I <0.012 (0.000-0.034) ng/mL Total Protein (6.3-8.2) g/dL Albumin (3.5-5.0) g/dL Disposition <Whitney Aguirre - Last Filed: 08/06/23 11:04> Time of Disposition: 12:56 <Sandor Rizzo - Last Filed: 08/06/23 12:56> Clinical Impression: Chest pain Disposition: ADMITTED IP TO THIS HOSP Referrals: Eleazar Cottrell MD [Primary Care Provider] - 1-2 days
[2023-08-06] MEDS ORDERED: NITROGLYCERIN OINT 1 INCH/GM PACKET TOPICAL STA (11:28)
[2023-08-06] MEDS ORDERED: ASPIRIN 81 MG PO STA (11:28)
--- NOTE | 2023-08-06 11:55 | XR ---
EXAMINATION TYPE: XR chest 2V DATE OF EXAM: 08/06/2023 COMPARISON: 04/18/2020 HISTORY: 63-year-old male with chest pain TECHNIQUE: PA and lateral views FINDINGS: The cardiomediastinal silhouette, aorta, and pulmonary vasculature are within normal limits. Lungs an d pleural spaces are clear. DISH in the midthoracic spine. IMPRESSION: No acute cardiopulmonary process.
[2023-08-06 12:05] LABS: Basophils % (A) 1 %; Eosinophils # (A) 0.1 k/uL (0-0.7); Eosinophils % (A) 2 %; HCT 51.2 % (39.0-53.0); HGB 16.5 gm/dL (13.0-17.5); Lymphocytes # (A) 1.2 k/uL (1.0-4.8); Lymphocytes % (A) 18 %; MCH 30.1 pg (25.0-35.0); MCHC 32.2 g/dL (31.0-37.0); MCV 93.5 fL (80.0-100.0); Mean Platelet Volume 8.8; Monocytes # (A) 0.4 k/uL (0-1.0); Monocytes % (A) 6 %; Neutrophils # (A) 4.5 k/uL (1.3-7.7); Neutrophils % (A) 72 %; Platelet Count 248 k/uL (150-450); RBC 5.47 m/uL (4.30-5.90); RDW 12.8 % (11.5-15.5); WBC 6.3 k/uL (3.8-10.6)
[2023-08-06 12:15] LABS: INR 0.9 (<1.2); Partial Thromboplastin Time 25.7 sec (22.0-30.0); Prothrombin Time 10.3 sec (10.0-12.5)
[2023-08-06 12:20] LABS: ALT 33 U/L (4-49); AST 32 U/L (17-59); African American GFR (CKD) 90 (>60 ml/min/1.73 sqM); Albumin 4.5 g/dL (3.5-5.0); Alkaline Phosphatase 63 U/L (38-126); Anion Gap 7 mmol/L; Blood Urea Nitrogen 19 mg/dL (9-20); Calcium 9.2 mg/dL (8.4-10.2); Carbon Dioxide 25 mmol/L (22-30); Chloride 106 mmol/L (98-107); Glucose 140 mg/dL (74-99); Non-African American GFR(CKD) 78 (>60 ml/min/1.73 sqM); Potassium 4.1 mmol/L (3.5-5.1); Sodium 138 mmol/L (137-145); Total Bilirubin 0.8 mg/dL (0.2-1.3); Total Protein 7.5 g/dL (6.3-8.2)
[2023-08-06 12:36] LABS: Magnesium 1.9 mg/dL (1.6-2.3)
[2023-08-06] MEDS ORDERED: NITROGLYCERIN SL TABS 0.4 MG TAB SUBLINGUAL PRN (12:56)
[2023-08-06] MEDS: NITROGLYCERIN OINT 1 INCH/GM PACKET TOPICAL SCH (22:04)
[2023-08-07] MEDS: NITROGLYCERIN OINT 1 INCH/GM PACKET TOPICAL SCH ×3 (00:53→13:12)
--- NOTE | 2023-08-07 02:59 | HP ---
HISTORY AND PHYSICAL SUBJECTIVE: This 63-year-old male came in with chest pain for the last 1-2 weeks, getting worse. Reports associated shortness of breath. He thought was indigestion. Came to the ER. He developed pain radiates down his left arm when it occurs, high blood pressure, taking medications. ALLERGIES: To latex. PAST MEDICAL HISTORY: Dyslipidemia, syncope, orthopedic surgery, former smoker. FAMILY HISTORY: Mother negative. PHYSICAL EXAMINATION: VITAL SIGNS: Stable, afebrile. CARDIOVASCULAR: S1, S2. LUNGS: Transmitted upper sounds. GI: Soft, nontender. HEMATOLOGY: Negative for Homans. LUNGS: Mild wheezes and rhonchi. Muscular range of motion x4. PSYCH: Fair mood and affect. VITAL SIGNS: Pulse 101 to 51, temp 98.2, blood pressure 147 to 150s over 70s, O2 95 to 98 on room air. No lymphadenopathy. Intermittent chest pain, admitted the patient to the hospital, waiting consult from Cardiology. Prognosis is guarded. MMODL / IJN: [id number] /
[2023-08-07 08:22] VITALS: RESP 16
[2023-08-07] MEDS ORDERED: ASPIRIN 325 MG TAB PO SCH (09:00)
--- NOTE | 2023-08-07 10:16 | CT ---
EXAMINATION TYPE: CT chest wo con DATE OF EXAM: 08/07/2023 COMPARISON: None HISTORY: SOB CT DLP: 579.6 mGycm. Automated Exposure Control for Dose Reduction was Utilized. TECHNIQUE: CT scan of the thorax is performed without IV contrast. FINDINGS: The lungs are clear of abnormal airspace/consolidative density or abnormal interstitial density There are single bilateral sub-6 mm pulmonary nodules in the lung bases. There is no pleural effusion, pleural thickening or pneumothorax. Great vessels of the chest are normal there is no mediastinal, hilar or axillary adenopathy. Limited scanning through the upper abdomen reveals no gross abnormality. No focal osseous lesions are seen. IMPRESSION: 1. Single bilateral lower lobe sub-6 mm pulmonary nodules. Lung RADS category 2 benign. If this is a high risk patient, then routine screening yearly intervals is recommended. 2. No acute cardiopulmonary disease.
[2023-08-07 12:39] LABS: Chol/HDL Ratio 5.18 Ratio; LDL Cholesterol,Calculated 139.1 mg/dL (0.0-131.0)
[2023-08-07] MEDS ORDERED: ACETAMINOPHEN TAB 325 MG TAB PO STA (14:44)
[2023-08-07 15:23] VITALS: BP 152/93; PULSE 92; TEMP 98.1
--- NOTE | 2023-08-07 18:22 | P.CRDCN ---
History of Present Illness Consult date: 08/07/23 History of present illness: HISTORY OF PRESENTING ILLNESS 63-year-old male presented to the emergency department because of substernal chest pressure-like sensation which has been going on for last 1-2 weeks which is intermittent. He reports that it gets worse with physical activity and somewhat gets better with rest. Patient does report that he has history of diabetes, hypertension and dyslipidemia. He reports that he is not a smoker den ies any alcohol use marijuana use or any drug use. Troponins are negative, LDL 139, HDL 41, triglycerides 180, HbA1c 5.8 REVIEW OF SYSTEMS 14 point review of system is negative except what is mentioned above in HPI. PHYSICAL EXAMINATION Vital signs reviewed. Head: Normocephalic. Eyes: Sclerae nonicteric. Neck: Brisk carotid upstroke, no jugular venous distention. Lungs: Clear to auscultation. Heart: Regular rate and rhythm, S1-S2, no S3, no murmur or rub. Abdomen: Soft nontender, positive bowel sounds no organomegaly. Extremities: No edema, intact distal pulses. Neuro: Alert, oritented, no focal deficits ASSESSMENT Atypical chest pain, rule out of acute coronary syndrome Essential hypertension, diet controlled as per patient Dyslipidemia Type II Diabetes diet controlled hba1c 5.8 Obesity PLAN At this time patient is chest pain-free. Patient is okay to be discharged from cardiac vessel standpoint. He needs an outpatient echocardiogram and a Lexiscan nuclear stress test on short-term follow-up basis. Follow-up with Dr. Hartman thereafter Discharge patient on aspirin 81 mg, atorvastatin 40 mg, metoprolol succinate 25 mg daily Past Medical History Past Medical History: Chest Pain / Angina, Hyperlipidemia, Syncope Additional Past Medical History / Comment(s): RECENT INPT 04/18-04/19 FOR CHEST PAIN AND SYNCOPE History of Any Multi-Drug Resistant Organisms: None Reported Past Surgical History: Orthopedic Surgery Additional Past Surgical History / Comment(s): left knee, RT thumb Past Anesthesia/Blood Transfusion Reactions: No Reported Reaction Past Psychological History: No Psychological Hx Reported Smoking Status: Former smoker Past Alcohol Use History: Occasional Past Drug Use History: None Reported - Past Family History Mother Family Medical History: Diabetes Mellitus Father Family Medical History: Diabetes Mellitus Medications and Allergies Home Medications Medication Instructions Recorded Confirmed Type Aspirin 81 mg PO DAILY 08/07/23 08/07/23 History Atorvastatin [Lipitor] 40 mg PO HS #30 tab 08/07/23 Rx Metoprolol Succinate [Metoprolol 25 mg PO DAILY #30 tab 08/07/23 Rx Succinate ER] Allergies Allergy/AdvReac Type Severity Reaction Status Date / Time latex Allergy Rash/Hives Verified 08/06/23 12:50 Physical Exam Vitals: Vital Signs Temp Pulse Resp BP Pulse Ox 08/07/23 15:26 16 08/07/23 15:25 96 08/07/23 15:00 98.1 F 92 16 152/93 96 08/07/23 09:46 16 08/07/23 07:00 97.5 F L 74 16 167/93 98 08/07/23 02:31 97.8 F 90 15 129/77 94 L 08/06/23 19:27 97.8 F 90 15 129/77 94 L Intake and Output 08/07/23 08/07/23 08/07/23 06:59 14:59 22:59 Intake Total 120 Balance 120 Intake: Oral 120 Other: Voiding Method Toilet # Voids 1 Results 08/06/23 11:25 08/06/23 11:25 Lipids 08/06/23 Range/Units 11:23 Triglycerides 180.00 H (0.00-149.00) mg/dL Cholesterol 217.00 H (0.00-200.00) mg/dL HDL Cholesterol 41.90 (40.00-60.00) mg/dL Cholesterol/HDL Ratio 5.18 Ratio Intake and Output 08/07/23 08/07/23 08/07/23 06:59 14:59 22:59 Intake Total 120 Balance 120 Intake: Oral 120 Other: Voiding Method Toilet # Voids 1 08/06/23 11:25 08/06/23 11:25
--- NOTE | 2023-08-07 19:53 | P.DS ---
Providers Date of admission: 08/06/23 12:51 Expected date of discharge: 08/07/23 Attending physician: Cesar Arnold Consults: 08/06/23 12:57 Consult Physician Urgent Consulting Provider: [facility] Consult Reason/Comments: Chest pain Do you want consulting provider notified?: Yes Primary care physician: Stated None Hospital Course: Hospital course: I'm rounding for Dr. Cesar Arnold. 08/07/2023: Patient is present with his . He states he's had this pain on and off for some time. Does become more in one week. The pain even comes on at rest. No dizziness no lightheadedness. Patient was seen by cardiology. 4 outpatient 2-D echocardiogram and nuclear stress test. Cleared by Dr. Pacheco for discharge. Questions answered. Follow-up with Dr. Lester for pulmonary nodule. On exam: 98.1, 92, 16, 152.93, 96% room air Sitting up in a chair comfortable. Lungs-clear Cardiovascular: First seconds are normal, no edema Investigations: White count 6.3 hemoglobin 16.5 platelets 240 potassium 4.1 creatinine 1.04 LDL 139 Troponin I 3 negative Chest CTA: Single bilateral lower lobe l-6 mm pulmonary nodule Assessment and plan: -Anterior chest wall pain. Rule out cardiac cause. Troponin is negative. Outpatient 2-D echocardiogram and nuclear stress test. Follow up with Dr. Hartman. -Obesity BMI 34 Weight loss measures -Essential hypertension Toprol XL 25 mg a day -Single bilateral lower lobe 6 mm pulmonary nodule. Follow-up with Dr. Lester outpatient Disposition: Home Plan - Discharge Summary Discharge Rx Participant: Yes New Discharge Prescriptions: Continue Atorvastatin [Lipitor] 40 mg PO HS #30 tab Metoprolol Succinate [Metoprolol Succinate ER] 25 mg PO DAILY #30 tab Aspirin 81 mg PO DAILY Discontinued Ketorolac [Toradol] 10 mg PO Q6H PRN PRN Reason: Pain Discharge Medication List Aspirin 81 mg PO DAILY 08/07/23 [History] Atorvastatin [Lipitor] 40 mg PO HS #30 tab 08/07/23 [Rx] Metoprolol Succinate [Metoprolol Succinate ER] 25 mg PO DAILY #30 tab 08/07/23 [Rx] Follow up Appointment(s)/Referral(s): Moy Hartman MD [Medical Doctor] - 1 Week Cesar Arnold MD [STAFF PHYSICIAN] - 1 Week Roxie Lester MD [STAFF PHYSICIAN] - 4 Weeks (lung nodule) Patient Instructions/Handouts: Chest Pain (DC) Activity/Diet/Wound Care/Special Instructions: [facility] ON Wednesday TO SCHEDULE OUPATIENT CHEMICAL STRESS TEST. WILL NEED ECHO OUTPATIENT WELL. HOME ON: LIPITOR 40MG DAILY AT BEDTIME ASPIRIN 81MG DAILY METOPROLOL SUCCINATE 25MG DAILY. RETURN TO ER FOR WORSENING SYMPTOMS, PROBLEMS, OR CONCERNS . Discharge/Stand Alone Forms: [facility] PCPs Discharge Disposition: HOME SELF-CARE
== END 2023-08-07 15:25 | disposition home or self-care (01) ==
LOC: EC 10:59 → 6NMEDSUR 12:51
PROVIDERS: ADMIT Family Medicine; ATTEND Family Medicine
DX: R07.89 Other chest pain (principal); E78.5 Hyperlipidemia, unspecified; R00.0 Tachycardia, unspecified; I10 Essential (primary) hypertension; E11.9 Type 2 diabetes mellitus without complications; E66.9 Obesity, unspecified; Z68.34 Body mass index [BMI] 34.0-34.9, adult; Z83.3 Family history of diabetes mellitus; Z87.891 Personal history of nicotine dependence; Z79.82 Long term (current) use of aspirin; Z79.899 Other long term (current) drug therapy
CPT/HCPCS: 99285; 36415; 93005; 85379; 80061; 80053; 83735; 84484; 85025; 85610; 85730; 83036; 71046; 71250; G0378 ×2

== ENCOUNTER → 2023-08-23 | Outpatient (CLI) | payer OTHER ==
[2023-08-24 02:36] LABS: HCT 49.2 % (39.6-50.0); HGB 15.7 g/dL (13.0-17.0); MCH 29.7 pg (27.0-32.0); MCHC 31.9 g/dL (32.0-37.0); Mean Platelet Volume 12.2 FL (9.5-12.2); NRBC Per 100 WBC 0 X 10*3/uL (0.00-0.01); Platelet Count 227 X 10*3/uL (140-440); RBC 5.29 X 10*6/uL (4.40-5.60); RDW 12.5 % (11.5-14.5)
[2023-08-24 02:44] LABS: Blood Urea Nitrogen 12.4 mg/dL (9.0-27.0); Carbon Dioxide 24.4 mmol/L (21.6-31.8); Chloride 104 mmol/L (96-109); Potassium 4.2 mmol/L (3.5-5.5); Sodium 141 mmol/L (135-145)
== END | disposition home or self-care (01) ==
LOC: LABPAT 15:26
PROVIDERS: ATTEND Student in an Organized Health Care Education/Training Program
DX: Z01.812 Encounter for preprocedural laboratory examination (principal); R07.9 Chest pain, unspecified; R06.02 Shortness of breath
CPT/HCPCS: 36415; 80051; 82565; 84520; 85027

== ENCOUNTER 2023-09-10 09:29 | Day surgery (SDC) | payer OTHER ==
[~2023-09-10 09:29] MED LIST changes: +ALPRAZolam 0.25 MG TAB PO PRN; +ASPIRIN 325 MG TAB PO STA; +HEPARIN SODIUM,PORCINE (1 ML) 2,500 UNIT in SODIUM CHLORIDE 0.9% 250 ML IRRIGATION PRN; +HEPARIN SODIUM,PORCINE 10,000 UNIT in SODIUM CHLORIDE 0.9% 1,000 ML IRRIGATION PRN; +NITROGLYCERIN SL TABS 0.4 MG TAB SUBLINGUAL PRN; -SODIUM CHLORIDE 0.9% 1,000 ML IV SCH; +SODIUM CHLORIDE 0.9% 1,000 ML in EMPTY BAG 1 BAG IV SCH
[2023-09-10] MEDS: SODIUM CHLORIDE 0.9% 1,000 ML IV ONE (09:52)
[2023-09-10] MEDS: ALPRAZolam 0.5 MG TAB PO PRN (10:06)
[2023-09-10 10:28] VITALS: RESP 16; TEMP 97.9
[2023-09-10] MEDS ORDERED: LIDOCAINE 1% INJ 10MG/ML (20 ML MDV) ONE (11:27)
[2023-09-10] MEDS ORDERED: VERAPAMIL 2.5 MG/ML 2 ML AMP ONE (11:27)
[2023-09-10] MEDS ORDERED: fentaNYL (PF) 50 MCG/ML 2 ML AMP ONE (11:37)
[2023-09-10] MEDS ORDERED: HEPARIN SODIUM 1,000 UN/ML (10ML VL) ONE (11:37)
[2023-09-10] MEDS: fentaNYL (PF) 50 MCG/ML 2 ML AMP IVP ONE (11:42)
[2023-09-10] MEDS: MIDAZOLAM 2 MG/2 ML VIAL IVP ONE (11:42)
[2023-09-10] MEDS: LIDOCAINE 1% INJ 10MG/ML (20 ML MDV) SQ ONE (11:44)
[2023-09-10] MEDS: VERAPAMIL 2.5 MG/ML 2 ML AMP INTRAARTER ONE (11:46)
[2023-09-10] MEDS: HEPARIN SODIUM 1,000 UN/ML (10ML VL) IV ONE (11:50)
[2023-09-10] MEDS: IOPAMIDOL-370 100ML BTL INJ ONE (12:00)
[2023-09-10] MEDS ORDERED: RX INFO: IV CONTRAST WAS GIVEN 1 EACH MISC MISCELLANE PRN (12:04)
--- NOTE | 2023-09-10 12:04 | P.CARDCATH ---
Date of Procedure: 09/10/23 Description of Procedure: DIAGNOSTIC CORONARY ANGIOGRAPHY and LEFT HEART CATH REPORT PROCEDURES PERFORMED: Left heart catheterization Selective coronary angiography Moderate conscious sedation 19 mins Right radial access INDICATION: 63-year-old patient with past medical history of hypertension obesity presented to the hospital with substernal chest pain. He was ruled out of acute coronary syndrome and was seen as an outpatient follow-up. He underwent a nuclear stress test which showed a small area of mild reversibility in the anterolateral wall. Due to these findings and his symptoms which were atypical in nature, we proceeded with cardiac catheterization. CONSENT: I have explained the procedural steps of above-mentioned procedures in layman's terms to the patient. I discussed the risks (including but not limited to stroke, emergent vascular or cardiac surgery or ), benefits and alte rnative therapies for the above-mentioned procedure. I discussed the risks of sedation/analgesia and blood product administration (if indicated). The patient has indicated understanding and acceptance of these risks. Conscious Sedation: Patient's ECG, heart rate, blood pressure, pulse oximetry were monitored throughout the duration of procedure under my direct supervision. [2] mg Versed and [50] mg Fentanyl were used for induction of moderate conscious sedation. Total duration of moderate concious sedation 19 minutes. PROCEDURE: After explaining the risks, benefits and alternatives of the above mentioned procedures in detail to the patient, informed consent was obtained. Patient was taken to the catheterization lab, prepped and draped in usual sterile fashion using universal precuations. Barbow and neelima test were performed to confirm adequate perfusion to fingers. Ultrasound was used to identify the radial artery. 1% lidocaine was infiltrated over the right radial artery. A 6-Lithuanian sheath was placed and secured in the right radial artery using modified Seldinger technique. The sheath was flushed and 5 mg verapamil was administered intra-arterially. J tipped wire was advanced under fluoroscopic guidance. Once the wire tip reached aortic root 6500 units of IV heparin was given. Over the wire JR4 diagnostic catheter was advanced. The wire in place the catheter was manipulated to cross the aortic valve and entered into LV under fluoroscopy guidance. The wire was removed and the catheter was flushed. LV pressures were obtained and pullback was performed under fluoroscopy. Catheter was manipulated to selectively engage the right coronary ostium. Right coronary angiography was performed in different angiographic projections. The JR4 diagnostic catheter was exchanged for a JL 4 diagnostic catheter over the J-wire. The wire was removed, catheter was flushed and manipulated under fluoroscopy to selectively engaged the left coronary ostium. Left coronary angioplasty was performed in different angiographic projections. Catheter was removed over the wire. Radial sheath was flushed. The right radial sheath was removed and a TR band was placed with excellent patent hemostasis was achieved. The patient tolerated the procedure well. Patient was transported back to the post catheterization holding area in stable condition. Angiographic images were reviewed in detail. HEMODYNAMICS: Aortic Pressure: 100/70 mmHg. LV pressure: 107/10 mmHg. LVEDP 12 mmHg. There was no significant gradient across the aortic valve. SELECTIVE CORONARY ARTERIOGRAPHY: LEFT MAIN: The left main is a very large caliber vessel which bifurcates into the LAD and circumflex. Left main appears angiographically normal. LEFT ANTERIOR DESCENDING CORONARY ARTERY: LAD is a large caliber vessel which wraps around to the apex. Proximal LAD appears angiographically normal. Mid LAD appears angiographically normal. Distal LAD appears angiographically normal. It gives rise to diagonal branches and presents graphically normal LEFT CIRCUMFLEX CORONARY ARTERY: It is nondominant vessel. Left circumflex is a moderate caliber vessel. It appears angiographically normal. It gives rise to OM branches appear angiographically normal RIGHT CORONARY ARTERY: Dominant vessel. The right coronary artery is a large caliber vessel which gives PDA and PLV branch. It appears angiographically normal. IMPRESSION: Angiographically normal coronary arteries as described above. Normal left sided filling pressures PLAN: Aggressive risk factor modification per most recent ACC/AHA guidelines. 150 cc fluids for 3 hours Discharge home in 3 hours Follow-up in the office in 1-2 weeks. Performing Physician Moy Hartman MD, FACC, RPVI Thank you for allowing [facility] to participate in this patient's care. Feel free to reach out in case of any followup questions.
[2023-09-10] MEDS ORDERED: SODIUM CHLORIDE 0.9% 1,000 ML IV SCH (12:15)
[2023-09-10] MEDS: ACETAMINOPHEN TAB 500 MG TAB PO ONE (14:19)
[2023-09-10 14:42] VITALS: BP 103/56
[2023-09-10 15:14] VITALS: PULSE 68
== END 2023-09-10 15:08 | disposition home or self-care (01) ==
LOC: CATHCVL 09:29
PROVIDERS: ATTEND Student in an Organized Health Care Education/Training Program
DX: R07.2 Precordial pain (principal); I10 Essential (primary) hypertension; E66.9 Obesity, unspecified; Z79.899 Other long term (current) drug therapy
CPT/HCPCS: 93458; 76937; 99152; C1769 ×2; C1894; J2250; J2001; J3010; J1644; Q9967

== ENCOUNTER → 2023-09-14 | Outpatient (CLI) | payer OTHER ==
[2023-09-14 10:17] VITALS: BP 128/85; PULSE 84; RESP 16; TEMP 97.1
--- NOTE | 2023-09-14 12:07 | P.PAINPG ---
PQRS Measure Charge Sheet Comment: HISTORY OF PRESENT ILLNESS: A 63 yr old male as a referral from [facility] presents today w severe and chronic LBP x 1 yr secondary to DDD, spondylosis and facet arthropathy without myelopathy for evaluation. Pt states pain level is provoked at 8 /10 in intensity, constant, localized in the lumbar spine, predominantly axial, sharp in character w occasional shooting pain towards the buttocks. Pain is provoked by standing/ walking for periods > 15 min. Pain is alleviated by PT x 1 wk which he is currently in, medications (Tyl, Ibu, ASA), BioFreeze topical, use of a TENS unit, manual massage, repositioning and rest. Oswestry axial pain score at 26. PMH: OA, Angina, Hyperlipidemia, Syncope PSH: Cardiac Cath (Aug 2023), L Knee Arthroscopy, R Thumb Surgery SH: Former tobacco user, occasional ETOH use, No illicit drug use FH: Mo- DM. Fa- DM All: See list Meds: See list REVIEW OF ORGAN SYSTEMS: CONSTITUTIONAL: No fevers or chills. No recent weight loss. NEUROLOGICAL: + numbness and tingling along the distal extremities. No seizure disorders or headaches. MUSCULOSKELETAL: + pain PSYCHIATRIC: Denies current depression or suicidal thoughts. Physical Examinations : Constitutional : Cooperative , not in acute distress . Neurologic : Cranial nerve II to XII intact. No focal neurological deficits. Psychiatric : alert & oriented x 3. Matching mood & appropriate affect. Judgment & insight intact. Musculoskeletal : Cervical Spine Motor strength in the deltoid and biceps: Normal right side. Normal Left side Motor strength biceps and the wrist extensors: Normal right side . Normal left side Motor strength in the triceps muscle: Normal right side. Normal left side Deep tendon reflexes: Normal at the biceps. Normal at Brachioradialis. Normal at triceps Vertebral body tenderness to deep palpation over Cervical facet loading test: positive bilaterally Spurling test: positive bilaterally Neck distraction test: positive bilaterally Nichelle sign: positive bilaterally Lumbar spine Motor strength lower extremities ,thigh and legs 5/5 Right side , 5/5 Left side Deep tendon reflexes : Normal Knee Jerk. Normal Ankle Jerk Vertebral body tenderness over Springer Test positive Lumbar facet Loading Test: positive Right / positive Left BL L4-L5, L5-S1 Range of motion of the lumbar spine Flexion 30 degrees, extension 10 degrees Straight Leg Raise test: Left/ Right positive at degree Cheryle test: positive right / positive left. Severe tenderness over the Sacroiliac joint on the Right / Left sides Gaenslen test: positive bilaterally Seated flexion test: positive bilaterally. Sacral spine : Severe tenderness over the Sacroiliac joint: right side / left side Range of motion: Flexion of the lumbar spine <60 degrees Range of motion: Extension of the lumbar spine <20 degrees Gaenslen's Test positive Cheryle test: positive right side / left side Thigh Thrust Test Sacral Thrust Test Imaging: Noncontrast of the lumbar spine from 06/30/2023 reviewed Assessment/ Plan : Lumbar DDd Recommendation of BL MBB L4-L5, L5-S1 #1. May need a series of injections, up until RFA, for optimal pain relief. Risks, benefits of procedure discussed and patient verbalized understanding. Admits to anti- coagulant use or medical history of diabetes. Protocol for discontinuation/ continuation of medications obdulia procedure discussed. Minimal anesthesia provided, if clinically indicated, consisting of Versed and Fentanyl. All questions answered. I have spent greater than 30 minutes on patient care today. Dr Pena was available by phone for the evaluation of this patient. The time was used to review the medical records including relevant urine studies and Prescription history (MAPs), review of the available imaging, evaluation and examination of the patient, coordination of care with the medical staff and if applicable referring physicians, as well as creation of the medical record - Pain Location Bilateral Lower Back Non-Pharmacological Interventions: Inactivity, Physical Therapy, Relaxation Technique, TENS Unit Pharmacological Interventions: PRN Medication, Topical Medication PQRS Narrative: Smoking Status Never smoker Home Medications: Ambulatory Orders Aspirin 81 mg PO DAILY 08/07/23 Atorvastatin [Lipitor] 40 mg PO HS #30 tab 08/07/23 Metoprolol Succinate [Metoprolol Succinate ER] 25 mg PO DAILY #30 tab 08/07/23 Ascorbic Acid [Vitamin C] 500 mg PO DAILY 09/09/23 Flaxseed Oil 1 tab PO DAILY 09/09/23 Ibuprofen [Motrin] 600 mg PO Q6HR PRN 09/09/23 Magnesium 250 mg PO DAILY 09/09/23 Multivitamins, Thera [Multivitamin (formulary)] 1 tab PO DAILY 09/09/23 hydroCHLOROthiazide [Hydrodiuril] 25 mg PO DAILY 09/09/23 Controlled Substance Measures - Controlled Substance Measures Is patient prescribed a controlled substance at discharge?: No
== END ==
LOC: PNWHC3 09:28
PROVIDERS: ATTEND Specialist
DX: M51.17 Intervertebral disc disorders with radiculopathy, lumbosacral region (principal); M47.27 Other spondylosis with radiculopathy, lumbosacral region; M19.90 Unspecified osteoarthritis, unspecified site; E78.5 Hyperlipidemia, unspecified; Z87.891 Personal history of nicotine dependence; Z79.82 Long term (current) use of aspirin; Z91.040 Latex allergy status
CPT/HCPCS: 99211

== ENCOUNTER → 2023-09-24 | Day surgery (SDC) | payer OTHER ==
[2023-09-21 16:06] VITALS: BMI 36.9
[~2023-09-24] MED LIST changes: -ALPRAZolam 0.25 MG TAB PO PRN; -ASPIRIN 325 MG TAB PO STA; -HEPARIN SODIUM,PORCINE (1 ML) 2,500 UNIT in SODIUM CHLORIDE 0.9% 250 ML IRRIGATION PRN; -HEPARIN SODIUM,PORCINE 10,000 UNIT in SODIUM CHLORIDE 0.9% 1,000 ML IRRIGATION PRN; +LACTATED RINGERS 1,000 ML IV SCH; -NITROGLYCERIN SL TABS 0.4 MG TAB SUBLINGUAL PRN; -SODIUM CHLORIDE 0.9% 1,000 ML in EMPTY BAG 1 BAG IV SCH
--- NOTE | 2023-09-24 13:51 | P.PN ---
Progress Note - Text Progress Note Date: 09/24/23 Patient was scheduled to have diagnostic medial branch block lumbar area, at L4- 5 and L5-S1, in the preop holding area patient reported that he had coffee with the cream ,in the last two hours, for this reason, I discussed with the patient the option of rescheduling the procedure, versus, doing the procedure without any sedation, patient preferred to have the procedure rescheduled in the near future
== END ==
LOC: ORPAIN 13:35
PROVIDERS: ATTEND Specialist
DX: Z53.8 Procedure and treatment not carried out for other reasons (principal); M47.816 Spondylosis without myelopathy or radiculopathy, lumbar region

== ENCOUNTER 2023-10-14 09:07 | Day surgery (SDC) | payer OTHER ==
[2023-10-14] MEDS: LACTATED RINGERS 1,000 ML IV SCH (10:32)
[2023-10-14] MEDS ORDERED: ROPIVACAINE 5MG/ML 20ML VIAL ONE (11:04)
[2023-10-14] MEDS ORDERED: fentaNYL (PF) 50 MCG/ML 2 ML AMP ONE (11:04)
[2023-10-14] MEDS ORDERED: MIDAZOLAM 2 MG/2 ML VIAL ONE (11:04)
[2023-10-14 11:11] VITALS: TEMP 98
--- NOTE | 2023-10-14 11:18 | P.PCN ---
Date of Procedure: 10/14/23 Procedure(s) Performed: PREOPERATIVE DIAGNOSIS : 1- Lumbar spondylosis with Facet Arthropathy with out myelopathy . 2- Lumber degenerative disc disease POSTOPERATIVE DIAGNOSIS: 1- Lumbar spondylosis with Facet Arthropathy without myelopathy . 2- Lumber degenerative disc disease PROCEDURE: Diagnostic bilateral L3 , L4 , and L5 medial branch block under fluoroscopy guidance(fluoroscopy images available in the radiology Department ) ( To target the facet joint between Bilateral L4-5 , and L5-S1 )# 1st ANESTHESIA: moderate sedation with intravenous Versed 2 mg and Fentanyl 100 mcg. ( sedations started at 11:04 ,end at 11:14 ) EBL: Minimal COMPLICATION: None PROCEDURE INDICATION: Chronic low back pain secondary to Facet arthropathy unresponsive to conservative treatment. PROCEDURE DESCRIPTION: the patient was seen and identified in the preop holding area , risks and benefits and possible complications of the procedure and alternative were discussed with the patient, and the patient agreed to proceed with the procedure and signed the consent and vital signs monitored during the procedure and fluoroscopy was used to maximize the benefit and accuracy of the needle placement, and sedation was given to decrease patient anxiety, patient was taken to the procedure room and placed in prone position vital signs monitored in the back prepped with chlorhexidine X3 then under strict sterile technique using a right oblique fluoroscopy ,the junction of the transverse process and the superior articulating process of the right L3 , L4 , and L5 vertebra which corresponding to the fluoroscopy image of the eye of the Jules dog on the block side for the medial branches and subsequently , after local infiltration of skin and subcu tissuies with Ropivacaine 0.5 % , one mL at each level ,then 22-gauge 5 inches long Quincke-type needles , 3 needle was used , each one of them placed at the junction of the base of the transverse process and the superior articular process at the appropriate level, and the needle was advanced until the periosteum contacted, needle placement confirmed with AP oblique and lateral view and after appropriate needle placement confirmed, and after negative aspiration for heme and CSF and there was no paresthesia 1-1/2 mL of Ropivacaine 0.5% was used , then half mL injected at each level after negative aspiration the needle subsequently removed and the same procedure repeated for the left side at left side at L3 , L4 and L5 levels. At the end of the procedure and the needles removed and a bandage applied after the skin was cleaned the cleaning solution patient taken to recovery room in stable condition and monitors in the recovery room for 20-30 minutes and discharged home in stable condition after discharge criteria met and patient will follow up with the pain clinic in 2-4 weeks
[2023-10-14] MEDS: IV FLUID CONTINUATION 700 ML IV ONE (11:23)
[2023-10-14 11:48] VITALS: BP 127/79; PULSE 84; RESP 18
--- NOTE | 2023-10-14 12:39 | FL ---
Fluoroscopy INDICATION: Pain FINDINGS: Fluoroscopy time: 9.7 seconds. Total dose area product (DAP) in uGy*m?, mGy*cm? (or similar): 0.65350 Images obtained: 5. IMPRESSION: 1. Documentation of fluoroscopy.
== END 2023-10-14 11:55 | disposition home or self-care (01) ==
LOC: ORPAIN 09:07
PROVIDERS: ATTEND Specialist
DX: M47.816 Spondylosis without myelopathy or radiculopathy, lumbar region (principal); M51.36 Other intervertebral disc degeneration, lumbar region; G89.29 Other chronic pain; Z91.040 Latex allergy status; Z79.82 Long term (current) use of aspirin
CPT/HCPCS: 64493; 64494 ×2; J2250; J3010; J2795; 99152

== ENCOUNTER → 2023-11-01 | Outpatient (CLI) | payer OTHER ==
[2023-11-01 09:50] VITALS: BP 125/86; PULSE 86; RESP 16; TEMP 97.1
--- NOTE | 2023-11-01 13:56 | P.PAINPG ---
PQRS Measure Charge Sheet Comment: HISTORY OF PRESENT ILLNESS: A 63 yr old male presents today w severe and chronic LBP x 1 yr secondary to DDD, spondylosis and facet arthropathy without myelopathy for evaluation s/p BL MBB L3-L5 #1. Pt states he experienced 90 % pain relief x 4 hrs s/p procedure. Pt states pain level is provoked at 6 /10 in intensity, constant, localized in the lumbar spine, predominantly axial, sharp in character w occasional shooting pain towards the buttocks. Pain is provoked by standing/ walking for periods > 15 min. Pain is alleviated by PT x 6 wk which ended in Oct 2023, medications, topical, use of a TENS unit, manual massage, repositioning and rest. Oswestry axial pain score at 25. Interventional procedures include BL MBB L3-L5 x1 Medications include ASA, Tyl, Ibu, BioFreeze Gel REVIEW OF ORGAN SYSTEMS: CONSTITUTIONAL: No fevers or chills. No recent weight loss. NEUROLOGICAL: + numbness and tingling along the distal extremities. No seizure disorders or headaches. MUSCULOSKELETAL: + pain PSYCHIATRIC: Denies current depression or suicidal thoughts. Physical Examinations : Constitutional : Cooperative , not in acute distress . Neurologic : Cranial nerve II to XII intact. No focal neurological deficits. Psychiatric : alert & oriented x 3. Matching mood & appropriate affect. Judgment & insight intact. Musculoskeletal : Cervical Spine Motor strength in the deltoid and biceps: Normal right side. Normal Left side Motor strength biceps and the wrist extensors: Normal right side . Normal left side Motor strength in the triceps muscle: Normal right side. Normal left side Deep tendon reflexes: Normal at the biceps. Normal at Brachioradialis. Normal at triceps Vertebral body tenderness to deep palpation over Cervical facet loading test: positive bilaterally Spurling test: positive bilaterally Neck distraction test: positive bilaterally Nichelle sign: positive bilaterally Lumbar spine Motor strength lower extremities ,thigh and legs 5/5 Right side , 5/5 Left side Deep tendon reflexes : Normal Knee Jerk. Normal Ankle Jerk Vertebral body tenderness over Springer Test positive Lumbar facet Loading Test: positive Right / positive Left BL L4-L5, L5-S1 Range of motion of the lumbar spine Flexion 30 degrees, extension 10 degrees Straight Leg Raise test: Left/ Right positive at degree Cheryle test: positive right / positive left. Severe tenderness over the Sacroiliac joint on the Right / Left sides Gaenslen test: positive bilaterally Seated flexion test: positive bilaterally. Sacral spine : Severe tenderness over the Sacroiliac joint: right side / left side Range of motion: Flexion of the lumbar spine <60 degrees Range of motion: Extension of the lumbar spine <20 degrees Gaenslen's Test positive Cheryle test: positive right side / left side Thigh Thrust Test Sacral Thrust Test Imaging: Noncontrast of the lumbar spine from 06/30/2023 reviewed Assessment/ Plan : Lumbar DDd Recommendation of BL MBB L4-L5, L5-S1 #2. May need a series of injections, up until RFA, for optimal pain relief. Risks, benefits of procedure discussed and patient verbalized understanding. Admits to anti- coagulant use or medical history of diabetes. Protocol for discontinuation/ continuation of medications obdulia procedure discussed. Minimal anesthesia provided, if clinically indicated, consisting of Versed and Fentanyl. All questions answered. I have spent greater than 30 minutes on patient care today. Dr Pena was available by phone for the evaluation of this patient. The time was used to review the medical records including relevant urine studies and Prescription history (MAPs), review of the available imaging, evaluation and examination of the patient, coordination of care with the medical staff and if applicable referring physicians, as well as creation of the medical record PQRS Narrative: Smoking Status Never smoker Hx Alcohol Use (MH) No Home Medications: Ambulatory Orders Aspirin 81 mg PO DAILY 08/07/23 Atorvastatin [Lipitor] 40 mg PO HS #30 tab 08/07/23 Metoprolol Succinate [Metoprolol Succinate ER] 25 mg PO DAILY #30 tab 08/07/23 Ascorbic Acid [Vitamin C] 500 mg PO DAILY 09/09/23 Flaxseed Oil 1 tab PO DAILY 09/09/23 Ibuprofen [Motrin] 600 mg PO Q6HR PRN 09/09/23 Magnesium 250 mg PO DAILY 09/09/23 Multivitamins, Thera [Multivitamin (formulary)] 1 tab PO DAILY 09/09/23 hydroCHLOROthiazide [Hydrodiuril] 25 mg PO DAILY 09/09/23 Controlled Substance Measures - Controlled Substance Measures Is patient prescribed a controlled substance at discharge?: No
== END ==
LOC: PNWHC3 08:57
PROVIDERS: ATTEND Specialist
DX: M51.37 Other intervertebral disc degeneration, lumbosacral region (principal); Z91.040 Latex allergy status
CPT/HCPCS: 99211

== ENCOUNTER 2023-11-12 12:21 | Day surgery (SDC) | payer OTHER ==
[2023-11-10 15:28] VITALS: BMI 36.9
[2023-11-12] MEDS ORDERED: LACTATED RINGERS 1,000 ML IV SCH (12:41)
[2023-11-12 12:46] VITALS: TEMP 98
[2023-11-12] MEDS: LACTATED RINGERS 1,000 ML IV ONE (12:46)
[2023-11-12] MEDS ORDERED: MIDAZOLAM 2 MG/2 ML VIAL ONE (12:58)
[2023-11-12] MEDS ORDERED: fentaNYL (PF) 50 MCG/ML 2 ML AMP ONE (12:58)
[2023-11-12] MEDS ORDERED: ROPIVACAINE 5MG/ML 20ML VIAL ONE (13:02)
--- NOTE | 2023-11-12 13:13 | P.PCN ---
Date of Procedure: 11/12/23 Procedure(s) Performed: PREOPERATIVE DIAGNOSIS : 1- Lumbar spondylosis with Facet Arthropathy with out myelopathy . 2- Lumber degenerative disc disease POSTOPERATIVE DIAGNOSIS: 1- Lumbar spondylosis with Facet Arthropathy without myelopathy . 2- Lumber degenerative disc disease PROCEDURE: Diagnostic bilateral L3 , L4 , and L5 medial branch block under fluoroscopy guidance(fluoroscopy images available in the radiology Department ) ( To target the facet joint between Bilateral L4-5 , and L5-S1 )# 2nd ANESTHESIA: Monitored anesthesia care as per anesthesia department. EBL: Minimal COMPLICATION: None PROCEDURE INDICATION: Chronic low back pain secondary to Facet arthropathy unresponsive to conservative treatment. PROCEDURE DESCRIPTION: the patient was seen and identified in the preop holding area , risks and benefits and possible complications of the procedure and alternative were discussed with the patient, and the patient agreed to proceed with the procedure and signed the consent and vital signs monitored during the procedure and fluoroscopy was used to maximize the benefit and accuracy of the needle placement, and sedation was given to decrease patient anxiety, patient was taken to the procedure room and placed in prone position vital signs monitored in the back prepped with chlorhexidine X3 then under strict sterile technique using a right oblique fluoroscopy ,the junction of the transverse process and the superior articulating process of the right L3 , L4 , and L5 vertebra which corresponding to the fluoroscopy image of the eye of the Jules dog on the block side for the medial branches and subsequently , after local infiltration of skin and subcu tissuies with Ropivacaine 0.5 % , one mL at each level ,then 22-gauge 5 inches long Quincke-type needles , 3 needle was used , each one of them placed at the junction of the base of the transverse process and the superior articular process at the appropriate level, and the needle was advanced until the periosteum contacted, needle placement confirmed with AP oblique and lateral view and after appropriate needle placement confirmed, and after negative aspiration for heme and CSF and there was no paresthesia 1-1/2 mL of Ropivacaine 0.5% was used , then half mL injected at each level after negative aspiration the needle subsequently removed and the same procedure repeated for the left side at left side at L3 , L4 and L5 levels. At the end of the procedure and the needles removed and a bandage applied after the skin was cleaned the cleaning solution patient taken to recovery room in stable condition and monitors in the recovery room for 20-30 minutes and discharged home in stable condition after discharge criteria met and patient will follow up with the pain clinic in 2-4 weeks
[2023-11-12] MEDS: IV FLUID CONTINUATION 1,000 ML IV ONE (13:16)
--- NOTE | 2023-11-12 13:21 | FL ---
Fluoroscopy History: FACET BLOCK SASCHA FACET BLOCK BILATERAL, FLUORO TIME 14 SECONDS, .49770 DAP -TANK
[2023-11-12 13:30] VITALS: RESP 16
[2023-11-12 14:14] VITALS: BP 127/83; PULSE 92
== END 2023-11-12 13:48 | disposition home or self-care (01) ==
LOC: ORPAIN 12:21
PROVIDERS: ATTEND Specialist
DX: M47.816 Spondylosis without myelopathy or radiculopathy, lumbar region (principal); M51.36 Other intervertebral disc degeneration, lumbar region; G89.29 Other chronic pain; I10 Essential (primary) hypertension; E78.5 Hyperlipidemia, unspecified; I20.9 Angina pectoris, unspecified; Z79.899 Other long term (current) drug therapy; Z91.040 Latex allergy status; Z79.82 Long term (current) use of aspirin
CPT/HCPCS: 64493; 64494 ×2; J2250; J3010; J2795

== ENCOUNTER → 2023-12-01 | Outpatient (CLI) | payer OTHER ==
[2023-12-01 09:54] VITALS: BP 136/83; PULSE 84; RESP 16
--- NOTE | 2023-12-01 14:46 | P.PAINPG ---
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 Pt states he experienced 90 % pain relief x 3 hrs s/p procedure. Pt states pain level is provoked at 8 /10 in intensity, constant, localized in the lumbar spine, predominantly axial, sharp in character w occasional shooting pain towards the buttocks. Pain is provoked by standing/ walking for periods > 15 min. Pain is alleviated by PT x 6 wk which ended in Oct 2023, physician guided exercises daily since Oct 2023, medications, topical, use of a TENS unit, manual massage, repositioning and rest. Oswestry axial pain score at 24. Interventional procedures include BL MBB L3-L5 x2 Medications include ASA, Tyl, Ibu, BioFreeze Gel REVIEW OF ORGAN SYSTEMS: CONSTITUTIONAL: No fevers or chills. No recent weight loss. NEUROLOGICAL: + numbness and tingling along the distal extremities. No seizure disorders or headaches. MUSCULOSKELETAL: + pain PSYCHIATRIC: Denies current depression or suicidal thoughts. Physical Examinations : Constitutional : Cooperative , not in acute distress . Neurologic : Cranial nerve II to XII intact. No focal neurological deficits. Psychiatric : alert & oriented x 3. Matching mood & appropriate affect. Judgment & insight intact. Musculoskeletal : Cervical Spine Motor strength in the deltoid and biceps: Normal right side. Normal Left side Motor strength biceps and the wrist extensors: Normal right side . Normal left side Motor strength in the triceps muscle: Normal right side. Normal left side Deep tendon reflexes: Normal at the biceps. Normal at Brachioradialis. Normal at triceps Vertebral body tenderness to deep palpation over Cervical facet loading test: positive bilaterally Spurling test: positive bilaterally Neck distraction test: positive bilaterally Nichelle sign: positive bilaterally Lumbar spine Motor strength lower extremities ,thigh and legs 5/5 Right side , 5/5 Left side Deep tendon reflexes : Normal Knee Jerk. Normal Ankle Jerk Vertebral body tenderness over Springer Test positive Lumbar facet Loading Test: positive Right / positive Left BL L4-L5, L5-S1 Range of motion of the lumbar spine Flexion 30 degrees, extension 10 degrees Straight Leg Raise test: Left/ Right positive at degree Cheryle test: positive right / positive left. Severe tenderness over the Sacroiliac joint on the Right / Left sides Gaenslen test: positive bilaterally Seated flexion test: positive bilaterally. Sacral spine : Severe tenderness over the Sacroiliac joint: right side / left side Range of motion: Flexion of the lumbar spine <60 degrees Range of motion: Extension of the lumbar spine <20 degrees Gaenslen's Test positive Cheryle test: positive right side / left side Thigh Thrust Test Sacral Thrust Test Imaging: Noncontrast of the lumbar spine from 06/30/2023 reviewed Assessment/ Plan : Lumbar DDd Recommendation of BL RFA L4-L5, L5-S1. May need a series of injections, up until RFA, for optimal pain relief. Risks, benefits of procedure discussed and patient verbalized understanding. Admits to anti- coagulant use or medical history of diabetes. Protocol for discontinuation/ continuation of medications obdulia procedure discussed. Minimal anesthesia provided, if clinically indicated, consisting of Versed and Fentanyl. All questions answered. I have spent greater than 30 minutes on patient care today. Dr Pena was available by phone for the evaluation of this patient. The time was used to review the medical records including relevant urine studies and Prescription history (MAPs), review of the available imaging, evaluation and examination of the patient, coordination of care with the medical staff and if applicable referring physicians, as well as creation of the medical record PQRS Narrative: Smoking Status Never smoker Hx Alcohol Use (MH) No Home Medications: Ambulatory Orders Aspirin 81 mg PO DIRECTED PRN 08/07/23 Atorvastatin [Lipitor] 40 mg PO HS #30 tab 08/07/23 Metoprolol Succinate [Metoprolol Succinate ER] 25 mg PO DAILY #30 tab 08/07/23 Ascorbic Acid [Vitamin C] 500 mg PO DAILY 09/09/23 Flaxseed Oil 1 tab PO DAILY 09/09/23 Ibuprofen [Motrin] 600 mg PO Q6HR PRN 09/09/23 Magnesium 250 mg PO DAILY 09/09/23 Multivitamins, Thera [Multivitamin (formulary)] 1 tab PO DAILY 09/09/23 hydroCHLOROthiazide [Hydrodiuril] 25 mg PO DAILY 09/09/23 Controlled Substance Measures - Controlled Substance Measures Is patient prescribed a controlled substance at discharge?: No
== END ==
LOC: PNWHC3 08:46
PROVIDERS: ATTEND Specialist
DX: M51.36 Other intervertebral disc degeneration, lumbar region (principal); Z91.040 Latex allergy status
CPT/HCPCS: 99211

== ENCOUNTER 2023-12-21 11:49 | Day surgery (SDC) | payer OTHER ==
[2023-12-17 11:31] VITALS: BMI 36.9
[2023-12-21 12:34] VITALS: TEMP 98.1
[2023-12-21] MEDS: LACTATED RINGERS 1,000 ML IV SCH (12:42)
[2023-12-21] MEDS: IV FLUID CONTINUATION 1,000 ML IV ONE ×2 (12:42→14:05)
[2023-12-21] MEDS ORDERED: ROPIVACAINE 5MG/ML 20ML VIAL ONE (13:29)
[2023-12-21] MEDS ORDERED: TRIAMCINOLONE ACETONIDE 40 MG/ML 1 ML VIAL ONE (13:29)
[2023-12-21] MEDS ORDERED: fentaNYL (PF) 50 MCG/ML 2 ML AMP ONE (13:29)
[2023-12-21] MEDS ORDERED: MIDAZOLAM 2 MG/2 ML VIAL ONE (13:29)
--- NOTE | 2023-12-21 14:03 | P.PCN ---
Date of Procedure: 12/21/23 Surgeon: Bhavin Martines Pathology: none sent Condition: stable Disposition: PACU Description of Procedure: PREOPERATIVE DIAGNOSIS: Lumbar spondylosis without myelopathy POSTOPERATIVE DIAGNOSIS: Lumbar spondylosis without myelopathy PROCEDURES : Bilateral Radiofrequency thermocoagulation L4-L5, and L5-S1 medial branch, with fluoroscopic guidance ANESTHESIA: Local with lidocaine 1% using 25-gauge needle and IV moderate conscious sedation with 2 mg of Versed and 100 g of fentanyl sedation time: [id number] Physician: Bhavin Martines MD EBL: Minimal PROCEDURE INDICATION: The patient with low back pain secondary to lumbar facet arthropathy who had significant relief of pain with previous diagnostic lumbar medial branch block with Ropivacaine0.5%. PROCEDURE DESCRIPTION / TECHNIQUE: The patient was seen and identified in the preoperative area. Risks, benefits, complications, including but not limited to risk of infection ,bleeding , allergic reactions to the medications and no complete pain relief , and alternatives were discussed with the patient, the patient agreed to proceed with the procedure and signed the consent. IV was started. Vital signs remained stable throughout the procedure. Patient was taken to the OR and time out was completed. The patient was placed in the prone position on the procedure table. The lumber area was prepped and draped in the usual sterile fashion. . Vital signs were closely monitored during the procedure .IV sedation was used during the procedure to decrease patients anxiety. The target points were identified as follows: For the L5-S1 level which corresponds to the dorsal ramus of L5 the target point was at the superior medial aspect of the sacral ala on the Rt side of the spine on the AP view of fluoroscopy and for the L3, and L4 medial branches the target points were at the connection between the transverse process and the superior articular process of L4, and L5 vertebra respectively on the Rt oblique view of fluoroscopy. skin was marked, and localized with 1% lidocaineat these points. Subsequently, an 18 [id number] radiofrequency needles with a 10-mm curved active tips were advan sam guided by fluoroscopy to each of the target points mentioned above in a superior medial direction to get the active tips as parallel as possible to the medial branches tracks. AP, oblique, and lateral views of fluoroscopy were used to verify needle tips position. Each level then underwent motor testing at 2.5 Hz and 0 to 3 volt with local stimulation, but no radicular symptoms down the legs. I then injected 1 mL of lidocaine 1% in each needle before starting radiofrequency thermocoagulation at 80 degrees celsius for 90 seconds. After that I injected 1 ml of PF Ropivacaine 0.5%(3 mls) with 40 mg of Kenalog, 1 mL of this mixture was given in each needle before taking the needles out intact. Then the left side with the same levels was done in the same manner. At the end of the procedure, the skin was cleansed and bandages were applied. A copy of needle placement fluoroscopy was saved on the C-arm machine. COMPLICATIONS: No acute complications. DISPOSITION / PLANS: The patient was placed in a supine position and transferred to the recovery area in a stable condition for observation and was discharged from the recovery room after meeting discharge criteria. Home discharge instructions given to the patient by the staff. The patient was reexamined prior to discharge. The patient will schedule a follow up in the clinic in 2-4 weeks.
[2023-12-21 14:08] VITALS: RESP 18
[2023-12-21 14:23] VITALS: BP 143/89; PULSE 70
--- NOTE | 2023-12-22 04:21 | FL ---
EXAMINATION TYPE: FL guided pain mgmt statistic DATE OF EXAM: 12/21/2023 CLINICAL HISTORY: Low back pain. TECHNIQUE: Fluoroscopy. COMPARISON: None. FINDINGS: Fluoroscopic guidance was provided during pain relief procedure performed by Dr. Martines. A total of 24.7 seconds of fluoroscopic time was utilized during the procedure and 5 spot images are acquired. Images acquired shows needle localization at multiple levels in the lower lumbar spine. IMPRESSION: As Above. TOTAL DAP = 0.00844 mGy x m2.
== END 2023-12-21 14:38 | disposition home or self-care (01) ==
LOC: ORPAIN 11:49
PROVIDERS: ATTEND Anesthesiology
DX: M47.816 Spondylosis without myelopathy or radiculopathy, lumbar region (principal); Z79.82 Long term (current) use of aspirin; Z91.040 Latex allergy status
CPT/HCPCS: 64635; 64636 ×2; 99152; J2250; J3301; J3010; J2795

== ENCOUNTER → 2024-01-12 | Outpatient (CLI) | payer OTHER ==
[2024-01-12 09:09] VITALS: BP 144/92; PULSE 90; RESP 16
--- NOTE | 2024-01-12 14:50 | P.PAINPG ---
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 Pt states he experienced 90 % pain relief x 1 wk s/p procedure. Pt states pain level is provoked at 5 /10 in intensity, constant, localized in the lumbar spine, predominantly axial, sharp in character w occasional shooting pain towards the buttocks. Pain is provoked by standing/ walking for periods > 15 min. Pain is alleviated by PT x 6 wk which ended in Oct 2023, physician guided exercises daily since Oct 2023, medications, topical, use of a TENS unit, manual massage, repositioning and rest. Oswestry axial pain score at 23. Interventional procedures include BL RFA L3-L5 (Dec 2023) Medications include ASA, Tyl, Ibu, BioFreeze Gel REVIEW OF ORGAN SYSTEMS: CONSTITUTIONAL: No fevers or chills. No recent weight loss. NEUROLOGICAL: + numbness and tingling along the distal extremities. No seizure disorders or headaches. MUSCULOSKELETAL: + pain PSYCHIATRIC: Denies current depression or suicidal thoughts. Physical Examinations : Constitutional : Cooperative , not in acute distress . Neurologic : Cranial nerve II to XII intact. No focal neurological deficits. Psychiatric : alert & oriented x 3. Matching mood & appropriate affect. Judgment & insight intact. Musculoskeletal : Cervical Spine Motor strength in the deltoid and biceps: Normal right side. Normal Left side Motor strength biceps and the wrist extensors: Normal right side . Normal left side Motor strength in the triceps muscle: Normal right side. Normal left side Deep tendon reflexes: Normal at the biceps. Normal at Brachioradialis. Normal at triceps Vertebral body tenderness to deep palpation over Cervical facet loading test: positive bilaterally Spurling test: positive bilaterally Neck distraction test: positive bilaterally Nichelle sign: positive bilaterally Lumbar spine Motor strength lower extremities ,thigh and legs 5/5 Right side , 5/5 Left side Deep tendon reflexes : Normal Knee Jerk. Normal Ankle Jerk Vertebral body tenderness over Springer Test positive Lumbar facet Loading Test: positive Right / positive Left BL L4-L5, L5-S1 Range of motion of the lumbar spine Flexion 30 degrees, extension 10 degrees Straight Leg Raise test: Left/ Right positive at degree Cheryle test: positive right / positive left. Severe tenderness over the Sacroiliac joint on the Right / Left sides Gaenslen test: positive bilaterally Seated flexion test: positive bilaterally. Sacral spine : Severe tenderness over the Sacroiliac joint: right side / left side Range of motion: Flexion of the lumbar spine <60 degrees Range of motion: Extension of the lumbar spine <20 degrees Gaenslen's Test positive Cheryle test: positive right side / left side Thigh Thrust Test Sacral Thrust Test Imaging: Noncontrast of the lumbar spine from 06/30/2023 reviewed Assessment/ Plan : Lumbar DDd Follow up w Dr Allred to explore additional treatment options. All questions answered. I have spent greater than 30 minutes on patient care today. Dr Pena was available by phone for the evaluation of this patient. The time was used to review the medical records including relevant urine studies and Prescription history (MAPs), review of the available imaging, evaluation and examination of the patient, coordination of care with the medical staff and if applicable referring physicians, as well as creation of the medical record PQRS Narrative: Smoking Status Never smoker Hx Alcohol Use (MH) No Home Medications: Ambulatory Orders Aspirin 81 mg PO DIRECTED PRN 08/07/23 Atorvastatin [Lipitor] 40 mg PO HS #30 tab 08/07/23 Metoprolol Succinate [Metoprolol Succinate ER] 25 mg PO DAILY #30 tab 08/07/23 Ascorbic Acid [Vitamin C] 500 mg PO DAILY 09/09/23 Flaxseed Oil 1 tab PO DAILY 09/09/23 Ibuprofen [Motrin] 600 mg PO Q6HR PRN 09/09/23 Magnesium 250 mg PO DAILY 09/09/23 Multivitamins, Thera [Multivitamin (formulary)] 1 tab PO DAILY 09/09/23 hydroCHLOROthiazide [Hydrodiuril] 25 mg PO DAILY 09/09/23 Controlled Substance Measures - Controlled Substance Measures Is patient prescribed a controlled substance at discharge?: No
== END ==
LOC: PNWHC3 08:28
PROVIDERS: ATTEND Specialist
DX: M51.37 Other intervertebral disc degeneration, lumbosacral region (principal); Z91.040 Latex allergy status
CPT/HCPCS: 99211

== ENCOUNTER → 2024-03-22 | Outpatient (CLI) | payer OTHER ==
--- NOTE | 2024-03-22 11:40 | CT ---
EXAMINATION TYPE: CT lumbar spine wo con CT DLP: 1321.2 mGycm, Automated exposure control for dose reduction was used. DATE OF EXAM: 03/22/2024 11:26 AM COMPARISON: Lumbar spine radiograph 03/07/2024, 07/16/2023, MR lumbar spine 06/30/2023, CT abdomen pel vis 06/10/2020. CLINICAL INDICATION:Male, 63 years old with history of M54.50 LOW BACK PAIN, UNSPECIFIED; [facility], Pre-daugherty rgical planning TECHNIQUE: Multiple axial images were obtained from the midportion of T11 through the sacroiliac ray nts. Soft tissue and bone windows in coronal and sagittal planes were obtained and reviewed. Contrast used: none. Oral contrast used: none. FINDINGS: Alignment: There are 5 lumbar type vertebral bodies within normal alignment. Bone: No evidence of fracture is identified. Anterior osteophytosis of the lower lumbar spine. Discs: Schmorl's node involving the inferior endplate of the T12 vertebral body and superior endplate of the L1 vertebral body. Vacuum disc disease identified at L5-S1. T12-L1: No spinal canal or neural foraminal stenosis is identified. L1-L2: No spinal canal or neural foraminal stenosis is identified. L2-L3: No spinal canal or neural foraminal stenosis is identified. L3-L4: Broad-based disc bulge resulting in mild effacement of the anterior thecal sac. Mild bilateral neural foraminal stenosis. L4-L5: Eccentric leftward broad disc bulge with minimal effacement of the anterior thecal sac. Bilate ral facet arthropathy. Mild to moderate bilateral neural foraminal stenosis. L5-S1: Broad-based disc bulge with minimal effacement of the anterior thecal sac. Bilateral facet ar thropathy with right worse than left. Moderate bilateral neural foraminal stenosis. Other: None IMPRESSION: 1. No evidence for spinal fracture. 2. Mild multilevel degenerative disc disease and facet arthropathy as described above.
== END | disposition home or self-care (01) ==
LOC: RADCTMAIN 10:43
PROVIDERS: ATTEND Orthopaedic Surgery
DX: M51.36 Other intervertebral disc degeneration, lumbar region (principal); M47.26 Other spondylosis with radiculopathy, lumbar region; M99.73 Connective tissue and disc stenosis of intervertebral foramina of lumbar region
CPT/HCPCS: 72131

== ENCOUNTER → 2024-10-09 | Outpatient (CLI) | payer OTHER ==
[2024-10-09 18:53] LABS: HGB 15.2 g/dL (13.0-17.0); MCH 29.7 pg (27.0-32.0); MCHC 31.7 g/dL (32.0-37.0); MCV 93.9 FL (80.0-97.0); Mean Platelet Volume 12.3 FL (9.5-12.2); NRBC Per 100 WBC 0 X 10*3/uL (0.00-0.01); Platelet Count 187 X 10*3/uL (140-440); RBC 5.11 X 10*6/uL (4.40-5.60); RDW 12.6 % (11.5-14.5); WBC 5.17 X 10*3/uL (4.50-10.00)
[2024-10-09 19:16] LABS: C Reactive Protein, High Sens 0.528 mg/L (0.000-3.000); Chol/HDL Ratio 4.27 Ratio
[2024-10-09 19:17] LABS: ALT 27 U/L (10-49); AST 28 U/L (14-35); Albumin 4.5 g/dL (3.8-4.9); Albumin/Globulin Ratio 2.05 Ratio (1.60-3.17); Alkaline Phosphatase 48 U/L (41-126); BUN/Creat Ratio 9.57 Ratio (12.00-20.00); Blood Urea Nitrogen 13.4 mg/dL (9.0-27.0); Calcium 9.5 mg/dL (8.7-10.3); Chloride 105 mmol/L (96-109); Globulin 2.2 g/dL (1.6-3.3); Glucose 107 mg/dL (70-110); LDL Cholesterol,Calculated 136.6 mg/dL (0.0-131.0); Potassium 4.9 mmol/L (3.5-5.5); Sodium 142 mmol/L (135-145); Total Bilirubin 0.6 mg/dL (0.3-1.2); Total Protein 6.7 g/dL (6.2-8.2)
[2024-10-09 19:39] LABS: NT-Pro-B-Type Natriuretic Pept <36 pg/mL (0-125)
== END | disposition home or self-care (01) ==
LOC: LABWHC1 13:49
PROVIDERS: ATTEND Student in an Organized Health Care Education/Training Program
DX: Z13.6 Encounter for screening for cardiovascular disorders (principal); I50.9 Heart failure, unspecified; D72.9 Disorder of white blood cells, unspecified; E11.9 Type 2 diabetes mellitus without complications; E78.5 Hyperlipidemia, unspecified; E03.9 Hypothyroidism, unspecified; R79.89 Other specified abnormal findings of blood chemistry
CPT/HCPCS: 36415; 80053; 80061; 83036; 83880; 84443; 85027; 86141

== ENCOUNTER → 2024-12-20 | Outpatient (CLI) | payer OTHER ==
--- NOTE | 2024-12-26 07:00 | MR ---
EXAMINATION TYPE: MR lumbar spine wo con DATE OF EXAM: 12/20/2024 7:38 PM COMPARISON: None. CLINICAL INDICATION: Male, 64 years old with history of M48.061,M47.26, M54.50, low back pain that ra diates down both legs. history of ablation TECHNIQUE: Multiplanar, multisequence images of the lumbar spine were acquired. IV Contrast: mL (None, if empty) FINDINGS: Cord ends at the L1 level. Disc desiccation is present at L3-4 and L4-5, L5-S1. There may be residual S1-2 disc. L5-S1: Moderate size disc herniation is present. Since contact with the exiting nerve roots. Mild fac et hypertrophy is present. Bilateral foraminal narrowing is present. No significant thecal sac contac t or narrowing is present. L4-L5: No focal disc herniation or significant disc bulge. No spinal canal stenosis. Moderate forami nal narrowing is present.. Facet hypertrophy is present L3-L4: Mild disc bulge and anterior thecal sac flattening. No AP spinal canal stenosis. Mild foramina l narrowing is present. L2-L3: No focal disc herniation or significant disc bulge. No spinal canal stenosis. Neural foramen are patent. L1-L2: No focal disc herniation or significant disc bulge. No spinal canal stenosis. Neural foramen are patent. T12-L1: No focal disc herniation or significant disc bulge. No spinal canal stenosis. Neural forame n are patent. IMPRESSION: 1. Disc bulging L5-S1 with nerve root contact correlate with radicular symptoms. No spinal canal sten osis. 2. Foraminal narrowing L3-4 through L5-S1, greater in the lower lumbar spine. 3. Mild disc bulge L3-4 with anterior thecal sac flattening. No stenosis. [facility], , 12/26/2024 6:58 AM
== END | disposition home or self-care (01) ==
LOC: RADMRIMAIN 18:55
PROVIDERS: ATTEND Orthopaedic Surgery
DX: M48.061 Spinal stenosis, lumbar region without neurogenic claudication (principal); M51.16 Intervertebral disc disorders with radiculopathy, lumbar region; M47.26 Other spondylosis with radiculopathy, lumbar region
CPT/HCPCS: 72148

== ENCOUNTER → 2025-02-13 | Outpatient (CLI) | payer OTHER ==
--- NOTE | 2025-02-13 15:58 | XR ---
EXAMINATION TYPE: XR chest 2V DATE OF EXAM: 02/13/2025 COMPARISON: 08/06/2023 CLINICAL INDICATION: Male, 64 years old with history of Z01.818, E78.2, I10, E11.59, E11.69; , TECHNIQUE: XR chest 2V views of the chest. FINDINGS: The lungs are clear and there is no pneumothorax, pleural effusion, or focal pneumonia. Heart size normal and no overt failure. Osseous structures demonstrate hypertrophic and degenerative changes of the spine. IMPRESSION: 1. No acute process. [facility], , 02/13/2025 3:56 PM
== END | disposition home or self-care (01) ==
LOC: RADXRMAIN 15:39
DX: Z01.818 Encounter for other preprocedural examination (principal); E78.2 Mixed hyperlipidemia; I10 Essential (primary) hypertension; E11.59 Type 2 diabetes mellitus with other circulatory complications; E11.69 Type 2 diabetes mellitus with other specified complication
CPT/HCPCS: 71046

== ENCOUNTER → 2025-02-16 | Outpatient (CLI) | payer OTHER | END | disposition home or self-care (01) | LOC: LABPAT 07:35 | PROVIDERS: ATTEND Orthopaedic Surgery | DX: Z01.812 Encounter for preprocedural laboratory examination (principal); Z22.322 Carrier or suspected carrier of Methicillin resistant Staphylococcus aureus | CPT/HCPCS: 86850; 86900; 86901; 87070 ==